=== PATIENT | female | born 1990 | race Caucasian/White ===

== ENCOUNTER 2019-04-01 23:38 | Emergency (ER) | payer MEDICAID, SELFPAY ==
[2019-04-01 23:39] VITALS: BP 126/96; PULSE 112; RESP 18; TEMP 36.8; O2SAT 97; BMI 28.5
--- NOTE | 2019-04-01 23:51 | USR_ITS ---
PROCEDURE INFORMATION: Exam: US First Trimester, Transabdominal and US , Transvaginal Exam date and time: 04/01/2019 12:17 AM Age: 28 years old Clinical indication: complicated by abdominal or pelvic pain; Right lower quadrant; First trimester; Gestational age or lmp: Per patient 10w 1d per US gs measurement 6w 0d; Additional info: Pelvic pain, 10w preg TECHNIQUE: Imaging protocol: Real-time transabdominal obstetrical ultrasound of the maternal pelvis and a first trimester , less than 14 weeks 0 days, with image documentation. Transvaginal imaging was used for better evaluation of the fetus and adnexa. COMPARISON: No relevant prior studies available. FINDINGS: There is a 16 x 4 x 10 mm somewhat irregular shaped fluid collection within the uterus that might represent a very early gestational sac. No definite yolk sac visible to confirm that this is a true gestational sac. If this is a gestational sac, size would suggest gestational age of approximately 5 weeks. Small amount of cul-de-sac fluid. Small simple appearing cyst in the left ovary, measuring 31 x 25 x 28 mm. Small simple appearing cyst in the right ovary, measuring 32 x 29 x 22 mm. Maternal ovaries/adnexa otherwise appear essentially unremarkable. Blood flow detected in each ovary. The sonographic appearance alone is nonspecific. This may represent an early viable intrauterine , approximately 5 weeks gestation. If there is any further question of viability, follow up will be needed. An occult ectopic with a pseudo sac in the uterus is not yet completely excluded. Appropriate clinical follow up is needed. The urinary bladder was not completely evaluated/imaged at this time. Endovaginal scanning provided better visualization/evaluation of the possible gestational sac and contents, as discussed above. US/US OB limited [id number] IMPRESSION: 1. Possible very early gestational sac within the uterus. 2. See above discussion and recommendations. 3. Simple appearing cyst in each ovary, details above. 4. Small amount of cul-de-sac fluid. 5. Other details discussed above.
[2019-04-01] MEDS: sodium chloride 0.9% 1,000 ML 999 ML IV (23:53)
--- NOTE | 2019-04-02 | ED_ITS ---
Entered by Shoshana Zarate, acting as scribe for Chandrakant Dawn DO HPI - Abdominal Pain General: Chief Complaint: Abdominal Pain Stated Complaint: Abdominal Pain Time Seen by Provider: 04/01/19 23:49 Source: patient Mode of arrival: wheelchair Limitations: no limitations History of Present Illness: HPI narrative: 28 yo f came to the er with abd pain. Pt states that she has been cramping on and off but tonight on a sudden having some sharp pain. Pt states that she has had some nausea and some mild spotting. Onset was tonight. Pt states that she is 10 weeks . Pain is located in the lower middle part of her abd. MD elicited complaint: abdominal pain Pertinent past history: none Onset (ago): day(s) (today) Pain Consistency: constant Severity: moderate Quality: cramping and stabbing Radiation: none Exacerbating factors: nothing Relieving factors: nothing Associated Symptoms: Reports nausea; Denies chills, dysuria, fever(s) and hematuria Related Data: Patient : Yes (10 weeks) Review of Systems Const: Denies: fever or chills ENMT: Denies: painful swallowing, swelling of lips/tongue, bleeding gums, dental pain, Change in hearing, nose bleeds, post nasal drip or facial/sinus pain Card: Denies: chest pain, palpitations, irregular heart rhythm, edema, swelling of feet/ankles, shortness of breath on exertion or shortness of breath when lying down Resp: Denies: shortness of breath, productive cough, non-productive cough or wheezing GI: Reports: nausea : Denies: painful urination, urinary frequency, urinary urgency or blood in urine Musc: Denies: neck pain, back pain, redness or joint warmth Skin/Breast: Denies: rash, itching or redness Neuro: Denies: headache, dizziness, vertigo, confusion or seizure-like activity Psych: Denies: anxiety, visual hallucinations or auditory hallucinations PFSH ED PFSH: Statuses (acute, chronic, etc) shown below reflect problem list status as previously entered and may not be historically accurate Medical History (Updated 04/02/19 @ 02:44 by Chandrakant Dawn DO) Chronic migraine without aura, with intractable migraine, so stated, with status migrainosus (Acute) History of supraventricular tachycardia (Acute) Diagnosed in 2003 in her first . She states she underwent an cardiac ablative procedure in 2004 in [facility] and since then she has had no problems with tachycardia. Patient denies medical problems (Acute) Seizure disorder (Acute) Denies history of: Denies diabetes, asthma, hypertension, DVT/PE Wrist fracture (Acute) left at age 6; right at age 8 Surgical History (Updated 03/31/19 @ 15:11 by Zulema Solo RN) History of radiofrequency ablation (RFA) procedure for cardiac arrhythmia (Acute ~2005) To treat SVT Family History (Updated 03/31/19 @ 15:13 by Zulema Solo RN) Father Hypertension Diabetes Grandmother Hypertension Paternal Diabetes Paternal Left cleft palate paternal Breast cancer paternal Mother Heart disease Family/Other Left cleft palate cousins Down's syndrome Cousin Patient denies medical problems Denies family history of: Cervical, uterine, ovarian, colon cancer, DVT/PE Social History (Updated 03/31/19 @ 15:14 by Zulema Solo RN) Smoking and tobacco status: former smoker Alcohol intake: former Other details last substance use: Reports history of methamphetamine, cocaine and marijuana use Female Reproductive History: : 2 Physical Exam Const: COMMON NORMALS: oriented x3, healthy appearing and alert GENERAL APPEARANCE: in distress (Mild) Eye: COMMON NORMALS: EOMs intact bilaterally and conjunctivae normal CONJUNCTIVA: Yes conjunctivae normal Chest: COMMONS NORMALS: inspection of chest normal Resp: COMMON NORMALS: normal respiratory effort, no retractions, no use of accessory muscles and clear to auscultation bilaterally AUSCULTATION: clear to auscultation bilaterally Cardio: COMMON NORMALS: regular rate and regular rhythm RATE: regular rate RHYTHM: regular rhythm HEART SOUNDS: no murmurs GI: COMMON NORMALS: soft to palpation INSPECTION: Yes normal to inspection PALPATION: Yes soft and Yes tender Details: LLQ, RLQ and other (Suprapubic) PERCUSSION: normal to percussion : COMMON NORMALS: Yes no CVA tenderness BLADDER/KIDNEY EXAM: Yes no CVA tenderness Back/Pelvis: COMMON NORMALS: no CVA tenderness Neuro: COMMON NORMALS: oriented x3 SENSORIUM/ORIENTATION: Yes alert Course ED course: 28-year-old G2, P1. Her first was 15 years prior. She believes she was 10 weeks , her serum quant shows about 5 weeks. She has a gestational sac in the uterus by ultrasound showing about 5 weeks as well. No pole was present yet. Too early to rule out an ectopic. She is only spotted some. This could be a blighted ovum with threatened versus an early ectopic that is much less likely. Her laboratory is benign otherwise. Her cervix was closed, and she is experiencing no discharge. Pelvic was deferred because of this. Vital Signs: Vital signs: Vital Signs Temperature 98.3 F 04/01/19 23:39 Pulse Rate 92 04/02/19 03:04 Respiratory Rate 17 04/02/19 00:47 Blood Pressure 126/96 04/01/19 23:39 Pulse Oximetry 97 04/02/19 03:04 MDM - Abdominal Pain Lab Data: Labs: Lab Results 04/01/19 04/01/19 04/01/19 Range/Units 23:58 23:58 23:58 WBC 6.9 (4.0-10.0) 10^3/ uL RBC 3.96 L (4.1-5.3) 10^6/u L Hgb 12.0 (11.5-15.3) g/dL Hct 34.2 L (37.0-47.0) % MCV 86.4 (81-99) fL MCH 30.3 (28.0-34.0) pg MCHC 35.1 (30.0-36.0) g/dL RDW 12.3 (12.1-15.1) % Plt Count 184 (130-400) 10^3/c mm MPV 10.2 (7.4-10.4) fL Neut % (Auto) 69.2 % Lymph % (Auto) 18.1 % Dent % (Auto) 11.1 % Eos % (Auto) 0.9 % Baso % (Auto) 0.3 % Neut # (Auto) 4.8 (1.8-7.7) 10^3/u L Lymph # (Auto) 1.2 (0.8-4.8) 10^3/u L Dent # (Auto) 0.8 (0.2-0.9) 10^3/u L Eos # (Auto) 0.1 (0.0-0.8) 10^3/u L Baso # (Auto) 0.0 (0.0-0.1) 10^3/u L Nucleated RBC % (a uto) 0 % Nucleated RBCs # 0.0 /100WBC Sodium 137 (136-145) mmol/L Potassium 3.7 (3.5-5.1) mmol/L Chloride 103 (98-107) mmol/L Carbon Dioxide 22 (22-29) mmol/L Anion Gap 15.7 (5-19) BUN 9 (6-20) mg/dL Creatinine 0.6 (0.5-0.9) mg/dL GFR Calculation 118.2 (90-130) mL/min Glucose 123 H (74-109) mg/dL Calcium 9.3 (8.5-10.5) mg/dL Total Bilirubin 0.3 (0.15-1.2) mg/dL AST 13 (0-32) U/L ALT 14 (0-33) U/L Alkaline Phosphata se 61 (35-105) IU/L Total Protein 6.7 (6.6-8.7) g/dL Albumin 4.7 (3.5-5.2) g/dL Globulin 2.0 (1.3-4.6) g/dL Lipase 31 (13-60) U/L Ser , Nikole i-Qnt 269.30 mIU/mL Urine Color (Yellow) Urine Appearance (CLEAR) Urine pH (5-7) Ur Specific Gravit y (1.005-1.030) Urine Protein (Negative) Urine Glucose (UA) (Normal) Urine Ketones (Negative) Urine Occult Blood (Negative) Urine Nitrate (Negative) Urine Bilirubin (NEGATIVE) Urine Urobilinogen (Negative) mg/dL Ur Leukocyte Mary ase (Negative) Blood Type O Positive 04/02/19 Range/Units 00:30 WBC (4.0-10.0) 10^3/ uL RBC (4.1-5.3) 10^6/u L Hgb (11.5-15.3) g/dL Hct (37.0-47.0) % MCV (81-99) fL MCH (28.0-34.0) pg MCHC (30.0-36.0) g/dL RDW (12.1-15.1) % Plt Count (130-400) 10^3/c mm MPV (7.4-10.4) fL Neut % (Auto) % Lymph % (Auto) % Dent % (Auto) % Eos % (Auto) % Baso % (Auto) % Neut # (Auto) (1.8-7.7) 10^3/u L Lymph # (Auto) (0.8-4.8) 10^3/u L Dent # (Auto) (0.2-0.9) 10^3/u L Eos # (Auto) (0.0-0.8) 10^3/u L Baso # (Auto) (0.0-0.1) 10^3/u L Nucleated RBC % (a uto) % Nucleated RBCs # /100WBC Sodium (136-145) mmol/L Potassium (3.5-5.1) mmol/L Chloride (98-107) mmol/L Carbon Dioxide (22-29) mmol/L Anion Gap (5-19) BUN (6-20) mg/dL Creatinine (0.5-0.9) mg/dL GFR Calculation (90-130) mL/min Glucose (74-109) mg/dL Calcium (8.5-10.5) mg/dL Total Bilirubin (0.15-1.2) mg/dL AST (0-32) U/L ALT (0-33) U/L Alkaline Phosphata se (35-105) IU/L Total Protein (6.6-8.7) g/dL Albumin (3.5-5.2) g/dL Globulin (1.3-4.6) g/dL Lipase (13-60) U/L Ser , Nikole i-Qnt mIU/mL Urine Color Yellow (Yellow) Urine Appearance Clear (CLEAR) Urine pH 7 (5-7) Ur Specific Gravit y 1.010 (1.005-1.030) Urine Protein Neg (Negative) Urine Glucose (UA) Norm (Normal) Urine Ketones Negative (Negative) Urine Occult Blood Neg (Negative) Urine Nitrate Negative (Negative) Urine Bilirubin Neg (NEGATIVE) Urine Urobilinogen Norm (Negative) mg/dL Ur Leukocyte Mary ase Negative (Negative) Blood Type Imaging Data ^: US OB: Radiologist's impression: [address] [address] Ultrasound Report Signed Patient: Emmy Francisco #: [id number] : 1990Acct#:[id number] Age/Sex: 28 FADM Date: 04/01/19 Loc: ERRoom/Bed: Attending Dr: Ordering Provider/Ordering MD: Chandrakant Dawn DO Date of Service: 04/01/19 Procedure(s): US OB limited 62290 Accession Number(s): [id number] Report Number: [id number] PROCEDURE INFORMATION: Exam: US First Trimester, Transabdominal and US , Transvaginal Exam date and time: 04/01/2019 12:17 AM Age: 28 years old Clinical indication: complicated by abdominal or pelvic pain; Right lower quadrant; First trimester; Gestational age or lmp: Per patient 10w 1d per US gs measurement 6w 0d; Additional info: Pelvic pain, 10w preg TECHNIQUE: Imaging protocol: Real-time transabdominal obstetrical ultrasound of the maternal pelvis and a first trimester , less than 14 weeks 0 days, with image documentation. Transvaginal imaging was used for better evaluation of the fetus and adnexa. COMPARISON: No relevant prior studies available. FINDINGS: There is a 16 x 4 x 10 mm somewhat irregular shaped fluid collection within the uterus that might represent a very early gestational sac. No definite yolk sac visible to confirm that this is a true gestational sac. If this is a gestational sac, size would suggest gestational age of approximately 5 weeks. Small amount of cul-de-sac fluid. Small simple appearing cyst in the left ovary, measuring 31 x 25 x 28 mm. Small simple appearing cyst in the right ovary, measuring 32 x 29 x 22 mm. Maternal ovaries/adnexa otherwise appear essentially unremarkable. Blood flow detected in each ovary. The sonographic appearance alone is nonspecific. This may represent an early viable intrauterine , approximately 5 weeks gestation. If there is any further question of viability, follow up will be needed. An occult ectopic with a pseudo sac in the uterus is not yet completely excluded. Appropriate clinical follow up is needed. The urinary bladder was not completely evaluated/imaged at this time. Endovaginal scanning provided better visualization/evaluation of the possible gestational sac and contents, as discussed above. US/US OB limited 62909 IMPRESSION: 1. Possible very early gestational sac within the uterus. 2. See above discussion and recommendations. 3. Simple appearing cyst in each ovary, details above. 4. Small amount of cul-de-sac fluid. 5. Other details discussed above. Dictated By:Zack Aragon MD Signed By:Zack Aragon MDSigned Date/Time:04/02/19207 DD/ 5 Discharge Plan Discharge Patient Disposition: Home, Self-Care Clinical Impression: Threatened Condition: Stable Prescriptions: [place] 7.5-325 mg tablet 1 tab PO Q6H Qty: 10 RF: 0 Reglan 10 mg tablet 10 mg PO Q6H PRN (Reason: nausea and vomiting) Qty: 10 RF: 0 Discharge Orders: Discharge Order (Routine); Ordered 04/02/19 Ordered By: Chandrakant Dawn Referrals: Jaqueline Celis FNP [Primary Care Provider] - Pamella Hernández MD [Physician] - 4-7 days Discharge Diet: Advance as tolerated Discharge Activity: Limit activity as instructed Patient Instructions: Threatened Miscarriage (ED) Activity Restrictions/Additional Instructions: Return for worsening pain despite treatment, fever greater than 100, vomiting liquids or medications, other concerning symptoms. Return also for brisk vaginal bleeding, soaking more than 1 pad per hour for more than 2 to 3 hours. Try to limit lifting to 15 pounds or less. Pelvic rest (no intercourse) until cleared by your doctor. You need to have your blood test checked again in 2-4 days. Call your doctor's office wednesday to arrange this. Discharge Date/Time: 04/02/19 03:05 Coding Level of Care Code ED Clinical Informatics Specialist for Chg Fwd The documentation recorded by the Elliot bergman Stephanie Lyn, accurately reflects the service I personally performed and the decisions made by , Chandrakant Dawn, Apr 01, 2019 23:38
[2019-04-02 00:04] VITALS: RESP 17
[2019-04-02] MEDS: ondansetron 2 mg/ML SDV 2 mL 4 MG IVP (00:04)
[2019-04-02] MEDS: morphine 4 mg/mL SDV 1 mL IVP ×2 (00:04→00:44)
[2019-04-02 00:05] LABS: Basophils % 0.3 %; Eosinophils # 0.1 10^3/uL (0.0-0.8); Eosinophils % 0.9 %; Hematocrit 34.2 % (37.0-47.0); Lymphocytes # 1.2 10^3/uL (0.8-4.8); Lymphocytes % 18.1 %; Mean Corpuscular HGB Conc 35.1 g/dL (30.0-36.0); Mean Corpuscular Hemoglobin 30.3 pg (28.0-34.0); Mean Corpuscular Volume 86.4 fL (81-99); Mean Platelet Volume 10.2 fL (7.4-10.4); Monocytes # 0.8 10^3/uL (0.2-0.9); Monocytes % 11.1 %; Neutrophils # 4.8 10^3/uL (1.8-7.7); Neutrophils % 69.2 %; Nucleated Red Blood Cells % 0 %; Platelet Count 184 10^3/cmm (130-400); Red Blood Count 3.96 10^6/uL (4.1-5.3); Red Cell Distribution Width 12.3 % (12.1-15.1); White Blood Count 6.9 10^3/uL (4.0-10.0)
[2019-04-02 00:36] LABS: Alanine Aminotransferase 14 U/L (0-33); Albumin Level 4.7 g/dL (3.5-5.2); Alkaline Phosphatase 61 IU/L (35-105); Anion Gap 15.7 (5-19); Aspartate Amino Transferase 13 U/L (0-32); Blood Urea Nitrogen 9 mg/dL (6-20); Calcium 9.3 mg/dL (8.5-10.5); Carbon Dioxide 22 mmol/L (22-29); Chloride 103 mmol/L (98-107); Glomerular Filtration Rate 118.2 mL/min (90-130); Glucose 123 mg/dL (74-109); Lipase 31 U/L (13-60); Potassium 3.7 mmol/L (3.5-5.1); Sodium 137 mmol/L (136-145); Total Bilirubin 0.3 mg/dL (0.15-1.2); Total Protein 6.7 g/dL (6.6-8.7)
[2019-04-02 00:44] VITALS: RESP 17
[2019-04-02 00:47] VITALS: RESP 17
[2019-04-02 00:50] LABS: Add Urine Microscopic? NO
[2019-04-02 01:25] LABS: Bilirubin Urine Neg (NEGATIVE); Blood Urine Neg (Negative); Glucose Urine UA Norm (Normal); Ketones Urine Negative (Negative); Leukocyte Esterase Urine Negative (Negative); Nitrate Urine Negative (Negative); Protein Urine Neg (Negative); Urine Appearance Clear (CLEAR); Urine Color Yellow (Yellow); Urobilinogen Urine Norm (Negative); pH Urine 7 (5-7)
[2019-04-02 03:04] VITALS: PULSE 92; O2SAT 97
--- NOTE | 2019-04-03 16:11 | DCPLANNER ---
manager hospitality had message to schedule a follow up appointment for patient with [facility]. manager hospitality called the [facility] clinic, spoke with Tameka, gave clinic patients information. manager hospitality was told that patients information would be printed and reviewed. Clinic will call rn field case manager and patient with appointment information.
--- NOTE | 2019-04-05 14:25 | DCPLANNER ---
Patient had a follow up appointment scheduled for 04.04.19 with [facility], patient did attend the appointment.
== END 2019-04-02 03:05 | disposition home or self-care (01) ==
PROVIDERS: Emergency Provider Emergency Medicine; Family Provider Nurse Practitioner; PCP Nurse Practitioner
DX: O20.0 Threatened abortion (principal); Z3A.10 10 weeks gestation of pregnancy; Z87.891 Personal history of nicotine dependence
CPT/HCPCS: 36415; 76815; 80053; 81003; 83690; 84702; 85025; 86900; 96360; 96374; 99282; J2270; J2405; J7030

== ENCOUNTER 2019-04-04 16:29 | Emergency (ER) | payer MEDICAID, SELFPAY ==
[2019-04-04 16:56] VITALS: BP 111/77; PULSE 96; RESP 14; TEMP 36.8; O2SAT 99; BMI 28.5
[2019-04-04 18:35] VITALS: BP 103/63; PULSE 91; RESP 20; O2SAT 99
--- NOTE | 2019-04-04 18:39 | ED_ITS ---
Entered by Nena Fischer, acting as scribe for Latrice Tejada Enrique Apr 04, 2019 16:29 HPI - Abdominal Pain General: Chief Complaint: Abdominal Pain Stated Complaint: poss miscarriage Time Seen by Provider: 04/04/19 18:35 Source: patient Mode of arrival: ambulatory Limitations: no limitations History of Present Illness: HPI narrative: 28 yo Female presents to ED with complaint of abdominal pain and nausea. Pt states that she is 6 weeks . Pt states that she had a positive test, positive test in ED on Wednesday04/02/19, and positive ultrasound. Pt states that today she started bleeding with large blood clots. Pt states that this is her second . 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 MD elicited complaint: abdominal pain Pertinent past history: none Onset (ago): hour(s) Pain Consistency: intermittent Quality: cramping Radiation: none Migration to: no migration Exacerbating factors: nothing Relieving factors: nothing Associated Symptoms: Reports GI cramping and nausea; Denies chills, coffee ground emesis, constipation, diarrhea, dysuria, fever(s), hematochezia, hematuria, hematemesis, melena, syncope and vomiting Related Data: Date of Last Menstrual Period: 01/21/19 Review of Systems General: Reports: other (negative unless marked) Const: Denies: fever, chills, body aches, fatigue, malaise or diaphoresis Eyes: Denies: change in vision or blurry vision ENMT: Denies: throat pain, painful swallowing, hoarseness, ear pain, ear discharge, Change in hearing or nasal discharge Card: Denies: chest pain, palpitations, irregular heart rhythm, syncope, pre- syncope, shortness of breath on exertion or shortness of breath when lying down Resp: Denies: shortness of breath, productive cough, non-productive cough, wheezing, coughing up blood or chest congestion GI: Reports: abdominal pain, nausea and cramping; Denies: vomiting, vomiting blood, coffee grounds in vomit, diarrhea, constipation, blood in stool or black tarry stool : Reports: vaginal bleeding; Denies: flank pain, painful urination, urinary frequency, urinary urgency, decreased urine ouput, urinary incontinence or blood in urine Musc: Denies: neck pain, back pain, extremity pain, extremity swelling, joint pain, joint swelling, joint warmth or joint stiffness Skin/Breast: Denies: rash, skin tenderness or yellow skin Neuro: Denies: headache, numbness in extremities, weakness in extremities, changes in sensation, lack of coordination, difficulty walking, dizziness, vertigo or confusion Endo: Denies: excessive thirst, tired all the time, cold intolerance, excessive sweating, flushing or hot flashes Zion/Lymph: Denies: easy bruising, easy bleeding, petechiae or enlarged lymph nodes All/Imm: Denies: hives, throat swelling, tongue swelling, facial swelling or acute wheezing PFSH ED PFSH: Statuses (acute, chronic, etc) shown below reflect problem list status as previously entered and may not be historically accurate Medical History Chronic migraine without aura, with intractable migraine, so stated, with status migrainosus (Acute) History of supraventricular tachycardia (Acute) Diagnosed in 2003 in her first . She states she underwent an cardiac ablative procedure in 2004 in [facility] and since then she has had no problems with tachycardia. Patient denies medical problems (Acute) Seizure disorder (Acute) Denies history of: Denies diabetes, asthma, hypertension, DVT/PE Wrist fracture (Acute) left at age 6; right at age 8 Surgical History History of radiofrequency ablation (RFA) procedure for cardiac arrhythmia (Acute ~2004) To treat SVT Family History Father Hypertension Diabetes Grandmother Hypertension Paternal Diabetes Paternal Left cleft palate paternal Breast cancer paternal Mother Heart disease Family/Other Left cleft palate cousins Down's syndrome Cousin Patient denies medical problems Denies family history of: Cervical, uterine, ovarian, colon cancer, DVT/PE Social History Smoking and tobacco status: former smoker Alcohol intake: former Other details last substance use: Reports history of methamphetamine, cocaine and marijuana use Female Reproductive History: Date of last menstrual period: 01/21/19 : 2 Physical Exam Const: COMMON NORMALS: no apparent distress, oriented x3, no limitations, healthy appearing and well nourished EXAM LIMITATIONS: no altered mental status GENERAL APPEARANCE: cooperative, well kempt and well developed ORIENTATION/CONSCIOUSNESS: Yes awake HENMT: COMMON NORMALS: normocephalic, head/scalp atraumatic, hearing grossly normal bilaterally, external ears normal, EAC's normal, external nose normal and moist oral mucous membranes HEAD & SCALP: normal to inspection, normocephalic and atraumatic FACE & SINUS: normal facial exam and face symmetric NOSE: external nose normal and nares normal EXTERNAL EAR: Yes external ears normal EXTERNAL AUDITORY CANAL: EAC's normal MOUTH: oral and palatal mucosa normal and tongue normal Eye: COMMON NORMALS: PERRL, EOMs intact bilaterally, conjunctivae normal and no scleral icterus GENERAL EYE: normal appearance of both eyes and normal light reflex CONJUNCTIVA: Yes conjunctivae normal SCLERA: sclerae normal CORNEA: Yes corneas normal PUPIL: Yes PERRL DIRECT OPHTHALMOSCOPY: Yes normal light reflex Neck/C-Spine: COMMON NORMALS: full ROM, no lymphadenopathy, supple, no meningeal signs and no JVD GENERAL: Yes normal visual inspection and Yes trachea midline CERVICAL SPINE: Yes cervical ROM normal Chest: COMMONS NORMALS: inspection of chest normal and palpation of chest normal Resp: COMMON NORMALS: normal respiratory effort, no retractions, no use of accessory muscles and clear to auscultation bilaterally EFFORT & INSPECTION: Yes able to speak in complete sentences AUSCULTATION: clear to auscultation bilaterally Cardio: COMMON NORMALS: no JVD, regular rate, regular rhythm, S1 normal heart sound, S2 normal heart sound, no gallops, no clicks, no murmurs and no rub JUGULAR VENOUS DISTENTION: no JVD RATE: regular rate RHYTHM: regular rhythm HEART SOUNDS: S1 normal and S2 normal GI: COMMON NORMALS: soft to palpation, non-tender, no hepatosplenomegaly and no masses INSPECTION: Yes normal to inspection PALPATION: Yes soft and Yes no hepatosplenomegaly : COMMON NORMALS: Yes no CVA tenderness BLADDER/KIDNEY EXAM: Yes no CVA tenderness Back/Pelvis: COMMON NORMALS: no CVA tenderness, thoracic and lumbar spine normal to inspection, no thoracic nor lumbar tenderness and thoraco-lumbar ROM normal Extremity: COMMON NORMALS: normal to inspection, full ROM, normal capillary refill, no joint enlargement, no clubbing, cyanosis or edema and no calf tenderness Neuro: COMMON NORMALS: oriented x3, CN's II-XII intact bilaterally, moves all extremities, no focal motor deficits and no sensory deficits noted MENINGEAL SIGNS: Yes no meningeal signs Psych: COMMON NORMALS: mental status grossly normal, thought process normal, cooperative, affect normal, speech normal and activity/motor behavior normal APPEARANCE: Yes well kempt SPEECH: Yes normal speech THOUGHT PROCESS: normal thought process Skin: COMMON NORMALS: no rashes or lesions noted, skin turgor normal, no jaundice, no petechiae and no mottling GENERAL SKIN EXAM: no rashes or lesions noted and turgor normal Course Vital Signs: Vital signs: Vital Signs Temperature 98.2 F 04/04/19 16:56 Pulse Rate 84 04/04/19 21:55 Respiratory Rate 18 04/04/19 21:55 Blood Pressure 110/67 04/04/19 21:55 Pulse Oximetry 100 04/04/19 21:55 MDM - Abdominal Pain MDM Narrative: Medical decision making narrative: Arrival -Emmy is a 28-year-old female who comes in complaining of vaginal bleeding. She describes a previously intrauterine seen on ultrasound measuring about 6 weeks. She had cramping since that time but has now beginning to have bleeding and worsening cramping. Vital signs are stable. No signs of syncope or near syncope. Differential is extensive including threatened miscarriage, incomplete miscarriage, ectopic , normal , among many others. Will ensue work-up with ultrasound, lab work, blood type checking to evaluate for the previously mentioned diagnosis. Discharge -patient's ultrasound reveals what is probably a demise and incomplete miscarriage. There is no sign of ectopic or sign of ovarian torsion or ovarian problem. The patient's history, exam and findings at this time are most consistent with incomplete miscarriage. With what was believed to be a gestational sac present before now passing a ectopic is less likely but not completely ruled out. The patient does not have any free fluid in her pelvis or sign of ectopic on ultrasound. I reviewed the case in full with Dr. Flower who agrees to see the patient on or Wednesday to recheck her quantitative hCG as he knows this will need to be followed out to 0. The patient understands the importance of this and does agree to follow-up as directed or return here sooner if needed. She understands ectopic is still a possibility. She agrees to return here if her symptoms worsen or change in any way. The patient does not want a catheterized specimen of her urine but I believe is this just contamination but I will place her on Keflex just to be certain I will treat her bacterial vaginosis with Cleocin. Lab Data: Attestation: I reviewed the patient's lab results. Labs: Lab Results 04/04/19 04/04/19 04/04/19 Range/Units 17:21 17:21 17:21 WBC 7.6 (4.0-10.0) 10^3/ uL RBC 4.54 (4.1-5.3) 10^6/u L Hgb 13.8 (11.5-15.3) g/dL Hct 39.8 (37.0-47.0) % MCV 87.7 (81-99) fL MCH 30.4 (28.0-34.0) pg MCHC 34.7 (30.0-36.0) g/dL RDW 12.3 (12.1-15.1) % Plt Count 196 (130-400) 10^3/c mm MPV 10.8 H (7.4-10.4) fL Neut % (Auto) 68.4 % Lymph % (Auto) 20.8 % Bosque % (Auto) 8.9 % Eos % (Auto) 1.1 % Baso % (Auto) 0.4 % Neut # (Auto) 5.2 (1.8-7.7) 10^3/u L Lymph # (Auto) 1.6 (0.8-4.8) 10^3/u L Bosque # (Auto) 0.7 (0.2-0.9) 10^3/u L Eos # (Auto) 0.1 (0.0-0.8) 10^3/u L Baso # (Auto) 0.0 (0.0-0.1) 10^3/u L Nucleated RBC % (a uto) 0 % Nucleated RBCs # 0.0 /100WBC Sodium 140 (136-145) mmol/L Potassium 3.6 (3.5-5.1) mmol/L Chloride 103 (98-107) mmol/L Carbon Dioxide 24 (22-29) mmol/L Anion Gap 16.6 (5-19) BUN 8 (6-20) mg/dL Creatinine 0.7 (0.5-0.9) mg/dL GFR Calculation 98.9 (90-130) mL/min Glucose 97 (74-109) mg/dL Calcium 9.6 (8.5-10.5) mg/dL Magnesium 2.0 (1.7-2.3) mg/dL Total Bilirubin 0.5 (0.15-1.2) mg/dL AST 13 (0-32) U/L ALT 11 (0-33) U/L Alkaline Phosphata se 74 (35-105) IU/L Total Protein 7.7 (6.6-8.7) g/dL Albumin 4.7 (3.5-5.2) g/dL Globulin 3.0 (1.3-4.6) g/dL Ser , Nikole i-Qnt 130.80 135.50 mIU/mL Urine Color (Yellow) Urine Appearance (CLEAR) Urine pH (5-7) Ur Specific Gravit y (1.005-1.030) Urine Protein (Negative) Urine Glucose (UA) (Normal) Urine Ketones (Negative) Urine Occult Blood (Negative) Urine Nitrate (Negative) Urine Bilirubin (NEGATIVE) Urine Urobilinogen (Negative) mg/dL Ur Leukocyte Mary ase (Negative) Urine RBC (0-2) /hpf Urine WBC (0-5) /hpf Ur Squamous Epith Cells (0-5) Urine Bacteria (NONE) Blood Type 04/04/19 04/04/19 Range/Units 17:27 19:40 WBC (4.0-10.0) 10^3/ uL RBC (4.1-5.3) 10^6/u L Hgb (11.5-15.3) g/dL Hct (37.0-47.0) % MCV (81-99) fL MCH (28.0-34.0) pg MCHC (30.0-36.0) g/dL RDW (12.1-15.1) % Plt Count (130-400) 10^3/c mm MPV (7.4-10.4) fL Neut % (Auto) % Lymph % (Auto) % Bosque % (Auto) % Eos % (Auto) % Baso % (Auto) % Neut # (Auto) (1.8-7.7) 10^3/u L Lymph # (Auto) (0.8-4.8) 10^3/u L Bosque # (Auto) (0.2-0.9) 10^3/u L Eos # (Auto) (0.0-0.8) 10^3/u L Baso # (Auto) (0.0-0.1) 10^3/u L Nucleated RBC % (a uto) % Nucleated RBCs # /100WBC Sodium (136-145) mmol/L Potassium (3.5-5.1) mmol/L Chloride (98-107) mmol/L Carbon Dioxide (22-29) mmol/L Anion Gap (5-19) BUN (6-20) mg/dL Creatinine (0.5-0.9) mg/dL GFR Calculation (90-130) mL/min Glucose (74-109) mg/dL Calcium (8.5-10.5) mg/dL Magnesium (1.7-2.3) mg/dL Total Bilirubin (0.15-1.2) mg/dL AST (0-32) U/L ALT (0-33) U/L Alkaline Phosphata se (35-105) IU/L Total Protein (6.6-8.7) g/dL Albumin (3.5-5.2) g/dL Globulin (1.3-4.6) g/dL Ser , Nikole i-Qnt mIU/mL Urine Color Red (Yellow) Urine Appearance Turbid (CLEAR) Urine pH 5 (5-7) Ur Specific Gravit y 1.020 (1.005-1.030) Urine Protein 2+ H (Negative) Urine Glucose (UA) Norm (Normal) Urine Ketones Negative (Negative) Urine Occult Blood 3+ H (Negative) Urine Nitrate Negative (Negative) Urine Bilirubin Neg (NEGATIVE) Urine Urobilinogen 1 H (Negative) mg/dL Ur Leukocyte Mary ase 1+ H (Negative) Urine RBC Too numerous to c nt H (0-2) /hpf Urine WBC 25-40 H (0-5) /hpf Ur Squamous Epith Cells 5-10 H (0-5) Urine Bacteria 4+ H (NONE) Blood Type O Positive Imaging Data ^: US Transvaginal: Radiologist's impression: [address] [address] Ultrasound Report Signed Patient: Emmy Francisco #: [id number] : 1990Acct#:[id number] Age/Sex: 28 / FADM Date: 04/04/19 Loc: ERRoom/Bed: Attending Dr: Ordering Provider/Ordering MD: Latrice Tejada DO Date of Service: 04/04/19 Procedure(s): US pelvic with transvaginal Accession Number(s): [id number] Report Number: [id number] PROCEDURE INFORMATION: Exam: US , Transvaginal and US Duplex Artery and Vein, Ovaries, Complete Exam date and time: 04/04/2019 6:54 PM Age: 28 years old Clinical indication: complicated by abdominal or pelvic pain; Lower; First trimester; Gestational age or lmp: Unknown; ; Patient HX: PT had prior ultrasound 04/01/19 TECHNIQUE: Imaging protocol: Real-time transvaginal obstetrical ultrasound of the maternal pelvis and a first trimester with image documentation. Transvaginal imaging was used for better evaluation of the fetus and adnexa. Real-time duplex ultrasound scan of the arterial and venous flow of the ovaries with B-mode, color Doppler flow and spectral waveform analysis, Complete Duplex. COMPARISON: US OB limited [id number] 04/02/2019 12:30 AM FINDINGS: Other findings: Doppler evaluation of both ovaries was performed and demonstrates appropriate waveforms and good color flow. No torsion. GESTATION: Gestation: No gestational sac is identified in the uterus. No adnexal mass or ectopic is identified. Noted fluid collection in the endometrial cavity. MATERNAL: Uterus: Uterus measures 11.4 x 4.7 by 4.2 cm. Uterus is retroverted. Endometrial stripe measures approximately 10 mm. Fluid in the endometrial cavity on the prior ultrasound is no longer identified. Right adnexa: Small simple right ovarian cyst is noted. The right ovary measures 1.9 x 2.9 x 1.9 cm. Left adnexa: The left ovary measures 3.2 x 3.2 x 2.5 cm. There is a simple left ovarian cyst measuring 2.9 x 2.2 x 3.2 cm. Intraperitoneal: There is a small amount of fluid in the cul-de-sac. US/US pelvic with transvaginal IMPRESSION: 1. Doppler evaluation of both ovaries was performed and demonstrates appropriate waveforms and good color flow. No torsion. 2. No gestational sac. Previous early sac or fluid in the endometrial cavity previously is no longer identified. No fluid collection in the endometrial cavity. Small simple appearing left ovarian cyst is noted. No ectopic . Dictated By:Milka Huang Signed By:Payam Huangigned Date/Time:04/04/192007 DD/ 05 Discharge Plan Discharge Patient Disposition: Home, Self-Care Clinical Impression: Incomplete , Bacterial vaginosis in UTI (urinary tract infection) Qualifiers: Urinary tract infection type: site unspecified Hematuria presence: with hematuria Qualified Code(s): N39.0 - Urinary tract infection, site not specified Condition: Stable Prescriptions: New Keflex 500 mg capsule 500 mg PO QID 10 Days Qty: 40 RF: 0 Cleocin HCl 300 mg capsule 300 mg PO BID 7 Days Qty: 14 RF: 0 No Action prenat.vits,yovani,ktp-ebzo-slycd Tablet 1 tab PO QDAY RF: 0 Barnet 7.5-325 mg tablet 1 tab PO Q6H Qty: 10 RF: 0 Reglan 10 mg tablet 10 mg PO Q6H PRN (Reason: nausea and vomiting) Qty: 10 RF: 0 Discharge Orders: Discharge Order (Routine); Ordered 04/04/19 Ordered By: Latrice Tejada Referrals: Jaqueline Celis FNP [Primary Care Provider] - Vidal Flower MD [Physician] - 1-3 days Discharge Diet: Usual diet Discharge Activity: Increase activity as tolerated Patient Instructions: Spontaneous Miscarriage (ED) Activity Restrictions/Additional Instructions: Please return to the ER immediately for any of the signs or symptoms listed on your discharge instruction sheets, worsening/changing of your symptoms, you are not getting better as quickly as expected, or for ANY other cause or concerns. Be certain to follow-up with Dr. Flower on or Wednesday as you will need to have a recheck of your hormone and to see the doctor to rule out ectopic . Return to the ER if you develop pain, you faint or nearly faint, if your bleeding becomes heavier, or for any other cause for concern. Discharge Date/Time: 04/04/19 21:55 Coding Level of Care Code ED Window Unit Air Conditioning Mechanic for Chg Fwd Exam Problem Focused The documentation recorded by the Aaliyah bergman Carmen, accurately reflects the service I personally performed and the decisions made by me, Latrice Tejada Apr 04, 2019 16:29
--- NOTE | 2019-04-04 18:49 | USR_ITS ---
PROCEDURE INFORMATION: Exam: US , Transvaginal and US Duplex Artery and Vein, Ovaries, Complete Exam date and time: 04/04/2019 6:54 PM Age: 28 years old Clinical indication: complicated by abdominal or pelvic pain; Lower; First trimester; Gestational age or lmp: Unknown; ; Patient HX: PT had prior ultrasound 04/01/19 TECHNIQUE: Imaging protocol: Real-time transvaginal obstetrical ultrasound of the maternal pelvis and a first trimester with image documentation. Transvaginal imaging was used for better evaluation of the fetus and adnexa. Real-time duplex ultrasound scan of the arterial and venous flow of the ovaries with B-mode, color Doppler flow and spectral waveform analysis, Complete Duplex. COMPARISON: US OB limited [id number] 04/02/2019 12:30 AM FINDINGS: Other findings: Doppler evaluation of both ovaries was performed and demonstrates appropriate waveforms and good color flow. No torsion. GESTATION: Gestation: No gestational sac is identified in the uterus. No adnexal mass or ectopic is identified. Noted fluid collection in the endometrial cavity. MATERNAL: Uterus: Uterus measures 11.4 x 4.7 by 4.2 cm. Uterus is retroverted. Endometrial stripe measures approximately 10 mm. Fluid in the endometrial cavity on the prior ultrasound is no longer identified. Right adnexa: Small simple right ovarian cyst is noted. The right ovary measures 1.9 x 2.9 x 1.9 cm. Left adnexa: The left ovary measures 3.2 x 3.2 x 2.5 cm. There is a simple left ovarian cyst measuring 2.9 x 2.2 x 3.2 cm. Intraperitoneal: There is a small amount of fluid in the cul-de-sac. US/US pelvic with transvaginal IMPRESSION: 1. Doppler evaluation of both ovaries was performed and demonstrates appropriate waveforms and good color flow. No torsion. 2. No gestational sac. Previous early sac or fluid in the endometrial cavity previously is no longer identified. No fluid collection in the endometrial cavity. Small simple appearing left ovarian cyst is noted. No ectopic .
[2019-04-04 18:58] LABS: Basophils % 0.4 %; Eosinophils # 0.1 10^3/uL (0.0-0.8); Eosinophils % 1.1 %; Hematocrit 39.8 % (37.0-47.0); Hemoglobin 13.8 g/dL (11.5-15.3); Lymphocytes # 1.6 10^3/uL (0.8-4.8); Lymphocytes % 20.8 %; Mean Corpuscular HGB Conc 34.7 g/dL (30.0-36.0); Mean Corpuscular Hemoglobin 30.4 pg (28.0-34.0); Mean Corpuscular Volume 87.7 fL (81-99); Mean Platelet Volume 10.8 fL (7.4-10.4); Monocytes # 0.7 10^3/uL (0.2-0.9); Monocytes % 8.9 %; Neutrophils # 5.2 10^3/uL (1.8-7.7); Neutrophils % 68.4 %; Nucleated Red Blood Cells % 0 %; Platelet Count 196 10^3/cmm (130-400); Red Blood Count 4.54 10^6/uL (4.1-5.3); Red Cell Distribution Width 12.3 % (12.1-15.1); White Blood Count 7.6 10^3/uL (4.0-10.0)
[2019-04-04 19:17] LABS: Alanine Aminotransferase 11 U/L (0-33); Albumin Level 4.7 g/dL (3.5-5.2); Alkaline Phosphatase 74 IU/L (35-105); Anion Gap 16.6 (5-19); Aspartate Amino Transferase 13 U/L (0-32); Blood Urea Nitrogen 8 mg/dL (6-20); Calcium 9.6 mg/dL (8.5-10.5); Carbon Dioxide 24 mmol/L (22-29); Chloride 103 mmol/L (98-107); Glomerular Filtration Rate 98.9 mL/min (90-130); Glucose 97 mg/dL (74-109); Potassium 3.6 mmol/L (3.5-5.1); Sodium 140 mmol/L (136-145); Total Bilirubin 0.5 mg/dL (0.15-1.2); Total Protein 7.7 g/dL (6.6-8.7)
[2019-04-04 19:40] VITALS: RESP 16
[2019-04-04] MEDS: metoclopramide 5 mg/mL SDV 2 mL 10 MG IV (19:40)
[2019-04-04] MEDS: morphine 4 mg/mL SDV 1 mL IVP (19:40)
[2019-04-04] MEDS: sodium chloride 0.9% 1,000 ML 100 ML IV (19:41)
[2019-04-04 21:07] LABS: Protein Urine 2+ (Negative); Urine Appearance Turbid (CLEAR); Urine Color Red (Yellow); pH Urine 5 (5-7)
[2019-04-04 21:08] LABS: Add Urine Culture? Yes; Bacteria Urine 4+; Bilirubin Urine Neg (NEGATIVE); Blood Urine 3+ (Negative); Glucose Urine UA Norm (Normal); Ketones Urine Negative (Negative); Leukocyte Esterase Urine 1+ (Negative); Nitrate Urine Negative (Negative); RBC Urine TOO NUMEROUS TO CNT /hpf (0-2); Urobilinogen Urine 1 mg/dL (Negative); WBC Urine 25-40 /hpf (0-5)
[2019-04-04] MEDS: HYDROcodone-acetaminophen 5-325 mg Tablet 1 TAB PO (21:54)
[2019-04-04 21:55] VITALS: BP 110/67; PULSE 84; RESP 18; O2SAT 100
== END 2019-04-04 21:55 | disposition home or self-care (01) ==
PROVIDERS: Emergency Medicine; Emergency Provider Emergency Medicine; Family Provider Nurse Practitioner; PCP Nurse Practitioner
DX: O03.4 Incomplete spontaneous abortion without complication (principal); O23.41 Unspecified infection of urinary tract in pregnancy, first trimester; Z3A.01 Less than 8 weeks gestation of pregnancy; O23.591 Infection of other part of genital tract in pregnancy, first trimester; Z87.891 Personal history of nicotine dependence
CPT/HCPCS: 36415; 76830; 76856; 80053; 81001; 83735; 84702; 85025; 86900; 87086; 87210; 87491; 87591; 96374; 99282; 99283; E0352; J2270; J2765; J7030

== ENCOUNTER → 2019-04-17 08:05 | Outpatient (BNVA) | payer MEDICAID, SELFPAY | PROVIDERS: Family Provider Nurse Practitioner; PCP Nurse Practitioner; Visit Provider Nurse Practitioner Women's Health | DX: O03.4 Incomplete spontaneous abortion without complication (principal); O23.599 Infection of other part of genital tract in pregnancy, unspecified trimester; B96.89 Other specified bacterial agents as the cause of diseases classified elsewhere; Z3A.01 Less than 8 weeks gestation of pregnancy | CPT/HCPCS: 84702 ==

== ENCOUNTER → 2019-04-27 08:48 | Outpatient (BNVA) | payer MEDICAID, SELFPAY | PROVIDERS: Family Provider Nurse Practitioner; PCP Nurse Practitioner; Visit Provider Nurse Practitioner Women's Health | DX: O03.4 Incomplete spontaneous abortion without complication (principal) | CPT/HCPCS: 84702 ==

== ENCOUNTER 2019-07-23 23:56 | Emergency (ER) | payer OTHER, SELFPAY ==
[2019-07-24 00:01] VITALS: BP 131/87; PULSE 88; RESP 16; TEMP 36.1; O2SAT 97; BMI 29.2
[2019-07-24] MEDS: fluorescein 1 mg Strip EYE-LEFT (00:19)
--- NOTE | 2019-07-24 00:19 | PC.NURSE ---
Poison control contacted concerning TBX instructions as follows: Rinse eye x 5 minutes check pH Check for injury utilizing fluorosine stain Othalmology consult for follow up if indicated.
[2019-07-24] MEDS: tetracaine 0.5% Op Soln 4 mL Btl 1 DROP EYE-LEFT (00:20)
[2019-07-24] MEDS: eye irrigation 30 mL Btl EYE-LEFT (00:20)
--- NOTE | 2019-07-24 00:45 | ED_ITS ---
HPI - Eye Problem General: Chief complaint: Eye Problems Stated complaint: left eye problems Time Seen by Provider: 07/24/19 00:07 Source: patient Mode of arrival: ambulatory Limitations: no limitations History of Present Illness: HPI Narrative: Patient is a 29-year-old female who presents to ED today with complaints of left eye pain. 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 She states she felt something might be in her eye and then touched her eye with her finger and thinks there was a small amount of chemical on her finger. She is complaining of burning and excessive tearing. No visual loss but does state things appear blurry. Reports she only uses a contact in her right eye. MD chief complaint: eye pain and eye redness Onset (ago): minute(s) Onset description: sudden Duration: constant Location: left eye Eye Symptoms: burning, redness and pain Place: work Mechanism: chemical exposure Severity: moderate Review of Systems Eyes: Reports: blurry vision, photophobia, eye discomfort, eye redness and increased production of tears; Denies: blind spots, floaters or seeing flashes PFSH ED PFSH: Medical History (Updated 07/24/19 @ 00:53 by DONNA Tolentino) Chronic migraine without aura, with intractable migraine, so stated, with status migrainosus History of supraventricular tachycardia Diagnosed in 2003 in her first . She states she underwent an cardiac ablative procedure in 2004 in [facility] and since then she has had no problems with tachycardia. Seizure disorder headache induced Surgical History H/O LEEP (~2009) [place]- 2 on pathology History of radiofrequency ablation (RFA) procedure for cardiac arrhythmia (~2004) To treat SVT Wrist fracture left at age 6; right at age 8 Family History Father Hypertension Diabetes Grandmother Hypertension Paternal Diabetes Paternal Left cleft palate paternal Breast cancer paternal Mother Heart disease Family/Other Left cleft palate cousins Patient denies medical problems Denies family history of: Cervical, uterine, ovarian, colon cancer, DVT/PE Social History Smoking and tobacco status: never smoked Alcohol intake: former Other details last substance use: Reports history of methamphetamine, cocaine and marijuana use History of recent travel: No Female Reproductive History: Date of last menstrual period: 07/07/19 Physical Exam Const: COMMON NORMALS: average body habitus, patient oriented x3, no limitations, healthy appearing, alert and well nourished Eye: COMMON NORMALS: Equal, round and reactive pupils present, EOMs intact bilaterally and no scleral icterus GENERAL EYE: normal light reflex VISUAL ACUITY: Yes acuity normal ALIGNMENT: Yes alignment normal PERIORBITAL: periorbital findings normal EYELID: eyelids normal CONJUNCTIVA: Yes conjunctival abnormal (diffuse injection) SCLERA: sclerae normal CORNEA: Yes corneas normal PUPIL: Yes Equal, round and reactive pupils present and Yes Pupil accommodation reflex normal DIRECT OPHTHALMOSCOPY: Yes normal light reflex OTHER: no fluorescein uptake noted; eye was copiously irrigated in addition to irrigated patient had already performed; pH testing was performed on both eyes and found to be 7.0 Neuro: COMMON NORMALS: patient oriented x3 SENSORIUM/ORIENTATION: Yes alert Course Vital Signs: Vital signs: Vital Signs Temperature 96.9 F L 07/24/19 00:01 Pulse Rate 68 07/24/19 01:08 Respiratory Rate 16 07/24/19 01:08 Blood Pressure 124/78 07/24/19 01:08 Pulse Oximetry 99 07/24/19 01:08 MDM - Eye Problem MDM Narrative: Medical decision making narrative: will have CM call patient tomorrow to set her up emergently with ophthalmology for reevaluation; strict return to ED precautions given. Discharge Plan Discharge Patient Disposition: Home, Self-Care Clinical Impression: Chemical burn of left eye Condition: Stable Prescriptions: New erythromycin 5 mg/gram (0.5 %) ointment 1 applic ophthalmic (eye) Q8H Qty: 3.5 RF: 0 tramadol 50 mg tablet 50 mg PO Q6H PRN (Reason: pain) Qty: 14 RF: 0 Discharge Orders: Discharge Order (Routine); Ordered 07/24/19 Ordered By: Nga Orr Referrals: Jaqueline Celis FNP [Primary Care Provider] - Patient Instructions: [facility]res, [facility] (ED) Activity Restrictions/Additional Instructions: Continue to irrigate the eye as much as possible when you get home in addition to the irrigation performed here. Case management should contact you tomorrow to set you up with ophthalmology. I recommend you see them in the next 1 to 2 days. Apply the antibiotic ointment as directed. You may use the pain medications as needed for eye discomfort. Return to the emergency department for uncontrollable pain, vision loss, any other concerns you may have. Discharge Date/Time: 07/24/19 01:11 Coding Level of Care Code ED Pediatrics Hospitalist for [place] Fwd Exam Expanded Problem Focused
[2019-07-24] MEDS: erythromycin Op Oint 1 gm 1 APPLIC EYE-LEFT (01:07)
[2019-07-24 01:08] VITALS: BP 124/78; PULSE 68; RESP 16; O2SAT 99
--- NOTE | 2019-07-25 11:07 | DCPLANNER ---
project manager retail had message to schedule a follow up appointment for patient with an eye doctor. project manager retail called patient to speak with patient about follow up appointment, was unable to speak with patient at this time, a voicemail was left for patient to return case liner phone call.
== END 2019-07-24 01:11 | disposition home or self-care (01) ==
PROVIDERS: Emergency Provider Physician Assistant; Family Provider Nurse Practitioner; PCP Nurse Practitioner
DX: T65.891A Toxic effect of other specified substances, accidental (unintentional), initial encounter (principal); T26.92XA Corrosion of left eye and adnexa, part unspecified, initial encounter
CPT/HCPCS: 12345; 99281; 99283

== ENCOUNTER 2019-09-13 07:31 | Emergency (ER) | payer MEDICAID, SELFPAY ==
--- NOTE | 2019-09-13 07:43 | W.ED.CHESTPA ---
HPI - Chest Pain General: Chief Complaint: Chest Pain Stated Complaint: CP Time Seen by Provider: 09/13/19 07:42 Source: patient Mode of arrival: ambulatory Limitations: no limitations History of Present Illness: HPI narrative: Patient is a 29-year-old female who presents to ED today with a complaint of chest pain that began earlier this morning while folding laundry. Patient tells me pain seemed to be located in the substernal/epigastric region and radiated into her back, left shoulder, and left ear. She states after symptoms began she began feeling very anxious. Upon arrival she states symptoms have subsided however continues to feel very anxious. Patient reports she has a history of 'non-SVT' SVT . She has no known other cardiac or pulmonary abnormalities. Patient not having any difficulty breathing, shortness of breath, cough, fevers. MD complaint: chest pain Timing of current episode: now resolved Pain location: substernal and epigastric Pain radiation: back, left shoulder and other (L ear) Relieving factors: nothing Exacerbating factors: nothing Associated symptoms: Deny abdominal pain, dyspnea, fever(s), nausea, palpitations, syncope or vomiting Review of Systems Const: Denies: fever(s), chills, body aches, fatigue or malaise Eyes: Denies: change in vision or blurry vision ENMT: Denies: throat pain, odynophagia, dental pain, ear or mastoid pain, nasal discharge, nasal congestion or epistaxis Card: Reports: chest pain; Denies: palpitations, irregular heart rhythm, edema, swelling of feet/ankles, lightheadedness, syncope, pre-syncope, dyspnea on exertion, orthopnea or leg pain with exertion Resp: Denies: dyspnea, productive cough, non-productive cough, pain on inspiration, hemoptysis or chest congestion GI: Denies: abdominal pain, nausea, vomiting, heartburn or diarrhea : Denies: dysuria Musc: Denies: neck pain, back pain or joint pain Skin/Breast: Denies: rash Neuro: Denies: headache(s) PFSH ED PFSH: Medical History (Updated 09/13/19 @ 08:58 by DONNA Tolentino) Chronic migraine without aura, with intractable migraine, so stated, with status migrainosus History of supraventricular tachycardia Diagnosed in 2003 in her first . She states she underwent an cardiac ablative procedure in 2004 in [facility] and since then she has had no problems with tachycardia. Seizure disorder headache induced Surgical History H/O LEEP (~2009) [place]- 2 on pathology History of radiofrequency ablation (RFA) procedure for cardiac arrhythmia (~2004) To treat SVT Wrist fracture left at age 6; right at age 8 Family History Father Hypertension Diabetes Grandmother Hypertension Paternal Diabetes Paternal Left cleft palate paternal Breast cancer paternal Mother Heart disease Family/Other Left cleft palate cousins Patient denies medical problems Denies family history of: Cervical, uterine, ovarian, colon cancer, DVT/PE Social History Smoking and tobacco status: never smoked Alcohol intake: former Other details last substance use: Reports history of methamphetamine, cocaine and marijuana use History of recent travel: No Female Reproductive History: Date of last menstrual period: 07/07/19 Physical Exam Const: COMMON NORMALS: no acute distress, average body habitus, patient oriented x3, no limitations, healthy appearing, alert and well nourished Neck/C-Spine: COMMON NORMALS: full ROM GENERAL: Yes normal visual inspection Chest: COMMONS NORMALS: normal inspection of the chest and normal palpation of entire chest wall Resp: COMMON NORMALS: normal respiratory effort and clear to auscultation bilaterally AUSCULTATION: clear to auscultation bilaterally Cardio: COMMON NORMALS: regular rate and regular rhythm RATE: regular rate RHYTHM: regular rhythm GI: COMMON NORMALS: Normal to inspection, nondistended, normoactive bowel sounds present, Soft to palpation, non-tender, No hepatosplenomegaly present and no masses PALPATION: Yes Soft to palpation and Yes No hepatosplenomegaly present Neuro: COMMON NORMALS: patient oriented x3 SENSORIUM/ORIENTATION: Yes alert Skin: COMMON NORMALS: no rashes or lesions noted GENERAL SKIN EXAM: no rashes or lesions noted Course Vital Signs: Vital signs: Vital Signs Temperature 98.1 F 09/13/19 07:47 Pulse Rate 91 09/13/19 07:47 Respiratory Rate 18 09/13/19 07:47 Pulse Oximetry 100 09/13/19 07:47 MDM - Chest Pain MDM Narrative: Medical decision making narrative: Again patient states her symptoms have subsided upon arrival to the ED apart from feeling anxious. Her vital signs have remained completely stable throughout her stay. She has been on the monitor during the entire time and I have not seen any episodes of SVT or other abnormal arrhythmias. Patient's EKG is normal. She has a negative troponin. CXR normal. At this time I will have case management work on getting patient set up with a primary care provider for further evaluation. Lab Data: Labs: Lab Results 09/13/19 09/13/19 09/13/19 Range/Units 08:10 08:10 08:10 WBC 6.5 (4.0-10.0) 10^3/ uL RBC 4.10 (4.1-5.3) 10^6/u L Hgb 12.7 (11.5-15.3) g/dL Hct 36.3 L (37.0-47.0) % MCV 88.5 (81-99) fL MCH 31.0 (28.0-34.0) pg MCHC 35.0 (30.0-36.0) g/dL RDW 11.8 L (12.1-15.1) % Plt Count 172 (130-400) 10^3/c mm MPV 11.0 H (7.4-10.4) fL Neut % (Auto) 56.7 % Lymph % (Auto) 33.2 % Dolores % (Auto) 8.0 % Eos % (Auto) 1.1 % Baso % (Auto) 0.8 % Neut # (Auto) 3.7 (1.8-7.7) 10^3/u L Lymph # (Auto) 2.2 (0.8-4.8) 10^3/u L Dolores # (Auto) 0.5 (0.2-0.9) 10^3/u L Eos # (Auto) 0.1 (0.0-0.8) 10^3/u L Baso # (Auto) 0.1 (0.0-0.1) 10^3/u L Nucleated RBC % (a uto) 0 % Nucleated RBCs # 0.0 /100WBC Sodium 138 (136-145) mmol/L Potassium 3.5 (3.5-5.1) mmol/L Chloride 103 (98-107) mmol/L Carbon Dioxide 24 (22-29) mmol/L Anion Gap 14.5 (5-19) BUN 13 (6-20) mg/dL Creatinine 0.7 (0.5-0.9) mg/dL GFR Calculation 98.3 (90-130) mL/min Glucose 100 (65-115) mg/dL Calculated Osmolal ity 282 L (285-295) mOsm/k g Calcium 9.4 (8.5-10.5) mg/dL Total Bilirubin 0.4 (0.15-1.2) mg/dL AST 20 (0-32) U/L ALT 22 (0-33) U/L Alkaline Phosphata se 67 (35-105) IU/L Troponin T Baselin e 6 (0-10) ng/L Total Protein 7.3 (6.6-8.7) g/dL Albumin 4.4 (3.5-5.2) g/dL Globulin 2.9 (1.3-4.6) g/dL HCG, Qual (Negative) 09/13/19 Range/Units 08:10 WBC (4.0-10.0) 10^3/ uL RBC (4.1-5.3) 10^6/u L Hgb (11.5-15.3) g/dL Hct (37.0-47.0) % MCV (81-99) fL MCH (28.0-34.0) pg MCHC (30.0-36.0) g/dL RDW (12.1-15.1) % Plt Count (130-400) 10^3/c mm MPV (7.4-10.4) fL Neut % (Auto) % Lymph % (Auto) % Dolores % (Auto) % Eos % (Auto) % Baso % (Auto) % Neut # (Auto) (1.8-7.7) 10^3/u L Lymph # (Auto) (0.8-4.8) 10^3/u L Dolores # (Auto) (0.2-0.9) 10^3/u L Eos # (Auto) (0.0-0.8) 10^3/u L Baso # (Auto) (0.0-0.1) 10^3/u L Nucleated RBC % (a uto) % Nucleated RBCs # /100WBC Sodium (136-145) mmol/L Potassium (3.5-5.1) mmol/L Chloride (98-107) mmol/L Carbon Dioxide (22-29) mmol/L Anion Gap (5-19) BUN (6-20) mg/dL Creatinine (0.5-0.9) mg/dL GFR Calculation (90-130) mL/min Glucose (65-115) mg/dL Calculated Osmolal ity (285-295) mOsm/k g Calcium (8.5-10.5) mg/dL Total Bilirubin (0.15-1.2) mg/dL AST (0-32) U/L ALT (0-33) U/L Alkaline Phosphata se (35-105) IU/L Troponin T Baselin e (0-10) ng/L Total Protein (6.6-8.7) g/dL Albumin (3.5-5.2) g/dL Globulin (1.3-4.6) g/dL HCG, Qual Negative (Negative) Imaging Data^: CXR: My impression: NAD EKG Data^: EKG 1: EKG interpretation date: 09/13/19 EKG interpretation time: 07:51 Interpretation: Sinus rhythm Rate [address] elevation or depression changes noted Normal QT interval Discharge Plan Discharge Patient Disposition: Home, Self-Care Clinical Impression: Non-cardiac chest pain Condition: Stable Prescriptions: No Action Aleve 220 mg Tablet 440 mg PO PRN RF: 0 28 mg iron- 800 mcg Tablet 1 tab PO DAILY RF: 0 Discharge Orders: Discharge Order (Routine); Ordered 09/13/19 Ordered By: Nga Orr Patient Instructions: Chest Pain - Noncardiac, Chest Pain - Chest Wall Activity Restrictions/Additional Instructions: As discussed case management should contact you shortly to set you up with a primary care provider. You may return to the emergency department for worsening chest pain, difficulty breathing, shortness of breath, fevers, dizziness/passing out episodes, any other concerns you may have. Coding Level of Care Code ED Manager [facility] for [facility] Fwd Exam Detailed
[2019-09-13 07:47] VITALS: PULSE 91; RESP 18; TEMP 36.7; O2SAT 100; BMI 28.3
--- NOTE | 2019-09-13 07:50 | XRR_ITS ---
PROCEDURE INFORMATION: Exam: XR Chest, 1 View Exam date and time: 09/13/2019 8:45 AM Age: 29 years old Clinical indication: Chest pain; Type not specified; Additional info: Chest pain-mid TECHNIQUE: Imaging protocol: XR of the chest Views: 1 view. COMPARISON: No relevant prior studies available. FINDINGS: Lungs: Unremarkable. No consolidation. Pleural space: Unremarkable. No pleural effusion. No pneumothorax. Heart/Mediastinum: Unremarkable. No cardiomegaly. Bones/joints: Unremarkable. XR/XR chest 1V portable [id number] IMPRESSION: No acute findings.
--- NOTE | 2019-09-13 07:50 | ECG_ITS ---
[facility] Test Date: 2019-09-13 Pat Name: Emmy Francisco Department: Room: Gender: Female Pharmacy Sales Representative: : 1990 Requested By: Nga Orr Order Number: [id number] Witt MD: Criss Bañuelos M.D. Measurements Intervals [place] Rate: 90 P: 73 OR: 157 QRS: 14 QRSD: 96 T: 14 QT: 367 QTc: 451 Interpretive Statements SINUS RHYTHM NONSPECIFIC T-WAVE ABNORMALITY Compared to ECG 08/09/2015 15:59:12 Sinus arrhythmia no longer present Incomplete right bundle-branch block no longer present Early repolarization no longer present T-wave abnormality still present Electronically Signed On 09-14-2019 17:11:11 CDT by Criss Bañuelos M.D. [id number]
[2019-09-13 08:26] LABS: Basophils # 0.1 10^3/uL (0.0-0.1); Basophils % 0.8 %; Eosinophils # 0.1 10^3/uL (0.0-0.8); Eosinophils % 1.1 %; Hematocrit 36.3 % (37.0-47.0); Hemoglobin 12.7 g/dL (11.5-15.3); Lymphocytes # 2.2 10^3/uL (0.8-4.8); Lymphocytes % 33.2 %; Mean Corpuscular Volume 88.5 fL (81-99); Monocytes # 0.5 10^3/uL (0.2-0.9); Neutrophils # 3.7 10^3/uL (1.8-7.7); Neutrophils % 56.7 %; Nucleated Red Blood Cells % 0 %; Platelet Count 172 10^3/cmm (130-400); Red Cell Distribution Width 11.8 % (12.1-15.1); White Blood Count 6.5 10^3/uL (4.0-10.0)
[2019-09-13 08:35] LABS: Alanine Aminotransferase 22 U/L (0-33); Albumin Level 4.4 g/dL (3.5-5.2); Alkaline Phosphatase 67 IU/L (35-105); Anion Gap 14.5 (5-19); Aspartate Amino Transferase 20 U/L (0-32); Blood Urea Nitrogen 13 mg/dL (6-20); Calcium 9.4 mg/dL (8.5-10.5); Carbon Dioxide 24 mmol/L (22-29); Chloride 103 mmol/L (98-107); Globulin 2.9 g/dL (1.3-4.6); Glomerular Filtration Rate 98.3 mL/min (90-130); Glucose 100 mg/dL (65-115); Osmolality Calculated 282 mOsm/kg (285-295); Potassium 3.5 mmol/L (3.5-5.1); Sodium 138 mmol/L (136-145); Total Bilirubin 0.4 mg/dL (0.15-1.2); Total Protein 7.3 g/dL (6.6-8.7); Troponin(5th) Baseline 6 ng/L (0-10)
[2019-09-13 09:02] LABS: HCG, Serum Qual Negative (Negative)
[2019-09-13 09:23] VITALS: BP 104/76; PULSE 62; RESP 16; O2SAT 100
--- NOTE | 2019-09-14 11:40 | DCPLANNER ---
manager java had message to speak with patient about getting established with a primary care physician. manager java called patient, unable to speak with patient at this time. manager java left a voicemail for patient to return nurse case manager phone call.
== END 2019-09-13 09:30 | disposition home or self-care (01) ==
PROVIDERS: Emergency Provider Physician Assistant
DX: R07.89 Other chest pain (principal)
CPT/HCPCS: 12345; 36415; 71045; 80053; 84484; 84703; 85025; 93005; 99282; 99284

== ENCOUNTER → 2020-04-22 12:13 | Outpatient (BNVA) | payer MEDICAID, SELFPAY | PROVIDERS: Visit Provider Nurse Practitioner | DX: J02.9 Acute pharyngitis, unspecified (principal) | CPT/HCPCS: 87071; 87880 ==

== ENCOUNTER → 2021-03-16 14:08 | Outpatient (BNVA) | payer MEDICAID, SELFPAY | PROVIDERS: Visit Provider Family Medicine | DX: R05.9 Cough, unspecified (principal) | CPT/HCPCS: 87400; 87635 ==

== ENCOUNTER 2022-11-13 13:57 | Emergency (ER) | payer SELFPAY ==
[2022-11-13 14:08] VITALS: BP 114/71; PULSE 92; RESP 28; TEMP 36.6; O2SAT 100; BMI 25.4
--- NOTE | 2022-11-13 14:26 | ED_ITS ---
HPI - SOB/Dyspnea General: Chief Complaint: Shortness of Breath/Dyspnea Stated Complaint: SOB Time Seen by Provider: 11/13/22 14:25 Source: patient Mode of arrival: ambulatory History of Present Illness: HPI Narrative: 32-year-old female presents emergency room complaining of shortness of breath she is hyperventilating when she first arrives. She is speaking in clear sentences because of her tachypnea. No chest pain no hemoptysis. Oxygen sats are normal MD elicited complaint: shortness of breath and cough Timing: intermittent Severity: moderate Exacerbating factors: nothing Relieving factors: nothing Associated symptoms: Deny abdominal pain, chest congestion, chest pain, cough, diaphoresis, dizziness, extremity pain, fever(s), hemoptysis, lightheadedness, myalgias, nausea, orthopnea, palpitations, paresthesias, polydipsia, polyuria, rash, sense of impending doom, syncope or vomiting Treatment prior to arrival: none Review of Systems Const: Denies: fever(s), chills or diaphoresis Card: Denies: chest pain, palpitations, lightheadedness, syncope or orthopnea Resp: Denies: dyspnea, hemoptysis or chest congestion GI: Denies: abdominal pain, nausea or vomiting : Denies: flank pain, difficulty voiding, dysuria, urinary frequency or urinary urgency Musc: Denies: extremity pain Skin/Breast: Denies: rash or pruritus Neuro: Denies: dizziness Endo: Denies: polyuria or polydipsia PFSH ED PFSH: Medical History Chronic migraine without aura, with intractable migraine, so stated, with status migrainosus History of supraventricular tachycardia Diagnosed in 2003 in her first . She states she underwent an cardiac ablative procedure in 2004 in [facility] and since then she has had no problems with tachycardia. Seizure disorder headache induced Surgical History H/O LEEP (~2009) [place]- 2 on pathology History of radiofrequency ablation (RFA) procedure for cardiac arrhythmia (~2004) To treat SVT Wrist fracture left at age 6; right at age 8 Family History Father Hypertension Diabetes Grandmother Hypertension Paternal Diabetes Paternal Left cleft palate paternal Breast cancer paternal Mother Heart disease Family/Other Left cleft palate cousins Patient denies medical problems Denies family history of: Cervical, uterine, ovarian, colon cancer, DVT/PE Social History Smoking and tobacco status: never smoked Alcohol intake: former Substance/Drug Use: former Date of last use: 2014 Other details last substance use: Reports history of methamphetamine, cocaine and marijuana use Current gender identity: Female Physical Exam Const: GENERAL APPEARANCE: cooperative and comfortable ORIENTATION/CONSCIOUSNESS: Yes awake, Yes oriented to person, Yes oriented to place and Yes oriented to time HENMT: COMMON NORMALS: normocephalic, atraumatic and hearing grossly normal bilaterally HEAD & SCALP: normocephalic and atraumatic Resp: COMMON NORMALS: normal respiratory effort, No retractions, No use of accessory muscles and clear to auscultation bilaterally AUSCULTATION: clear to auscultation bilaterally Cardio: COMMON NORMALS: regular rate, regular rhythm and No murmurs present (Cardio) RATE: regular rate RHYTHM: regular rhythm GI: COMMON NORMALS: Soft to palpation and No hepatosplenomegaly present AUSCULTATION: Yes normoactive bowel sounds PALPATION: Yes Soft to palpation, No Tenderness to palpation present (GI), No Guarding due to palpation present (GI) and Yes No hepatosplenomegaly present Extremity: COMMON NORMALS: normal to inspection, capillary refill normal, no clubbing, cyanosis or edema, no calf tenderness and no pedal edema Neuro: SENSORIUM/ORIENTATION: Yes oriented to person, Yes oriented to place and Yes oriented to time Skin: COMMON NORMALS: no rashes or lesions noted GENERAL SKIN EXAM: no rashes or lesions noted Course Vital Signs: Vital signs: Vital Signs Temperature 97.8 F 11/13/22 14:08 Pulse Rate 92 11/13/22 14:08 Respiratory Rate 28 H 11/13/22 14:08 Blood Pressure 100/60 11/13/22 16:18 Pulse Oximetry 98 11/13/22 16:18 Oxygen Delivery Me thod Room Air 11/13/22 16:18 MDM - SOB/Dyspnea Medical Decision Making Chest x-ray normal patient improved with Ativan. Will discharge patient home follow-up with primary care. Discharged home with as needed Ativan as well recommend following up with primary care [facility]. Medical Records I reviewed the patient's medical records. Lab Data I reviewed the patient's lab results. Labs/Radiology: Radiology Impressions Chest X-Ray 11/13/22 14:56 IMPRESSION: No acute cardiopulmonary abnormality. Laboratory Results Specimen Type Arterial 11/13/22 14:31 Sample Site Brachial, left 11/13/22 14:31 ABG pH 7.48 (7.35-7.45) H 11/13/22 14:31 ABG pCO2 33.7 mmHg (35-45) L 11/13/22 14:31 ABG pO2 73.4 mmHg (80.0-100.0) L 11/13/22 14:31 ABG HCO3 24.9 mmol/L (22-26) 11/13/22 14:31 ABG O2 Saturation 95.9 11/13/22 14:31 ABG Base Excess 1.7 mmol/L (-2.0-2.0) 11/13/22 14:31 Lance Test Pos 11/13/22 14:31 A-a O2 Gradient 4.4 mmHg (5-10) L 11/13/22 14:31 Hematocrit 38.7 % (37-47) 11/13/22 14:31 Hgb O2 Saturation 94.5 % (95-100) L 11/13/22 14:31 Carboxyhemoglobin 1.0 %THgb (0.4-20.1) 11/13/22 14:31 Methemoglobin 0.6 % (0.4-1.5) 11/13/22 14:31 Total Hemoglobin 12.6 g/dL (12-16) 11/13/22 14:31 Sodium 142.0 mmol/L (131-143) 11/13/22 14:31 Potassium 3.7 mmol/L (3.5-5.0) 11/13/22 14:31 Glucose 103.0 mg/dL (70-115) 11/13/22 14:31 Ionized Calcium 1.2 mmol/L (1.1-1.4) 11/13/22 14:31 O2 Delivery Device Room air 11/13/22 14:31 FiO2 21.0 % 11/13/22 14:31 Court Registry Officer ID Isiah 11/13/22 14:31 Discharge Plan Discharge Patient Disposition: Home Clinical Impression: Hyperventilation Condition: Stable Prescriptions: New Ativan 2 mg tablet 2 mg PO TID PRN (Reason: anxiety) Qty: 10 0RF No Action Imitrex 25 mg Tablet See Rx Instructions .ROUTE .COMPLEX PRN (Reason: Migraine Headache) Rx Instructions: 25 mg orally at onset of headache. May repeat in 2 hours. ;do not exceed 8 doses per 24 hrs dicyclomine 20 mg Tablet 20 mg PO QID Zofran ODT 4 mg Tablet,Disintegrating 4 mg PO Q6H PRN (Reason: Nausea And Vomiting) Discharge Orders: Discharge ED (Routine); Ordered 11/13/22 Ordered By: Rohan Mcmahon Referrals: Lucas,HEVER RenteriaP [Primary Care Provider] - Discharge Diet: Usual diet Discharge Activity: Resume usual activity Patient Instructions: Opioid Safety, Pain Management Coding Level of Care Code ED Swaging Machine Adjuster for Parul Swann
[2022-11-13 14:42] LABS: Blood Gas Allen Test Pos; Blood Gas Operator Identificat WALCI; Blood Gas Sample Type Arterial; Ionized Calcium Level - ABG 1.2 mmol/L (1.1-1.4); Oxygen Device ROOM AIR
--- NOTE | 2022-11-13 14:56 | XRR_ITS ---
PROCEDURE INFORMATION: Exam: XR Chest Exam date and time: 11/13/2022 3:09 PM Age: 32 years old Clinical indication: Dyspnea; Additional info: Dyspnea/cough TECHNIQUE: Imaging protocol: Radiologic exam of the chest. Views: 1 view. COMPARISON: CR XR chest 1V portable [id number] 09/13/2019 8:12 AM FINDINGS: Lungs: Evidence for mild benign healed granulomatous disease of the right mid mediastinal and hilar region and adjacent right lung. This is unchanged with prior exam. No focal infiltrate or consolidation. Pleural spaces: Unremarkable. No pleural effusion. No pneumothorax. Heart/Mediastinum: Cardiac size is within normal limits. Bones/joints: Visualized osseous structures show no acute abnormality. Minimal thoracic scoliosis. Other findings: No significant change with prior exam. XR/XR chest 1V portable [id number] IMPRESSION: No acute cardiopulmonary abnormality.
[2022-11-13 14:57] LABS: ABG PCO2 33.7 mmHg (35-45); ABG PH Result 7.48 (7.35-7.45); Alveolar-Arterial Oxygen Gradi 4.4 mmHg (5-10); Arterial Blood Gas Hematocrit 38.7 % (37-47); Base Excess ABG 1.7 mmol/L (-2.0-2.0); Blood Gas Sample Site Brachial, left; HCO3 ABG 24.9 mmol/L (22-26); HGB O2 Sat 94.5 % (95-100); Methemoglobin 0.6 % (0.4-1.5); Oxygen Saturation ABG 95.9; PO2 ABG 73.4 mmHg (80.0-100.0); Potassium Level - ABG 3.7 mmol/L (3.5-5.0); Total Hemoglobin 12.6 g/dL (12-16)
[2022-11-13] MEDS: LORazepam 2 mg Tablet PO (15:50)
[2022-11-13 16:18] VITALS: BP 100/60; O2SAT 98
== END 2022-11-13 16:19 | disposition home or self-care (01) ==
PROVIDERS: Emergency Provider Family Medicine; PCP Nurse Practitioner Family
DX: R06.4 Hyperventilation (principal)
CPT/HCPCS: 36600; 71045; 80051; 82330; 82805; 99283

== ENCOUNTER 2023-09-27 23:11 | Emergency (ER) | payer OTHER, SELFPAY ==
[2023-09-27 23:20] VITALS: BP 109/71; PULSE 72; RESP 16; TEMP 36.7; O2SAT 100
--- NOTE | 2023-09-28 00:08 | ED_ITS ---
HPI - Dental/Oral General: Chief complaint: Dental/Oral Stated complaint: Mouth/ear pain Time Seen by Provider: 09/27/23 23:56 Source: patient Mode of arrival: ambulatory Limitations: no limitations History of Present Illness: Patient is a 33-year-old female who presents the emergency department complaining of left upper dental pain for the past 2 weeks. She has been taking Tylenol and ibuprofen but this has not been helping. States she sees a dentist once a year, is set to see her dentist in November. Pain is gotten too severe to where it has been affecting her sleeping. Reports history of cavities, denies ever having a dental abscess. She denies any fever, nausea, vomiting, or any other symptoms at this time. She does note that the pain is starting to extend to her left face and left ear region. MD Complaint: tooth pain Onset (ago): week(s) Duration: constant Severity: severe Relieving factors: nothing Context: history of dental caries Associated symptoms: Reports ear or mastoid pain; Denies fever(s) Treatment prior to arrival: other (Tylenol and ibuprofen) Review of Systems General: Reports: 10 or more systems reviewed and unremarkable except in HPI and below Const: Denies: fever(s), chills or fatigue Eyes: Denies: change in vision ENMT: Reports: dental pain, ear or mastoid pain and sinus pain Card: Denies: chest pain, palpitations, swelling of feet/ankles or lightheadedness Resp: Denies: dyspnea, productive cough or wheezing GI: Denies: abdominal pain, nausea, vomiting, diarrhea or constipation : Denies: flank pain, difficulty voiding, dysuria or urinary frequency Musc: Denies: neck pain, back pain or joint pain Skin/Breast: Denies: rash Neuro: Denies: headache(s), numbness in extremities or weakness in extremities PFSH ED PFSH: Medical History History of supraventricular tachycardia Diagnosed in 2003 in her first . She states she underwent an cardiac ablative procedure in 2004 in [facility] and since then she has had no problems with tachycardia. Seizure disorder headache induced Chronic migraine without aura, with intractable migraine, so stated, with status migrainosus Surgical History H/O LEEP (~2009) [place]- 2 on pathology Wrist fracture left at age 6; right at age 8 History of radiofrequency ablation (RFA) procedure for cardiac arrhythmia (~2004 ) To treat SVT Family History Father Hypertension Diabetes Grandmother Hypertension Paternal Diabetes Paternal Left cleft palate paternal Breast cancer paternal Mother Heart disease Family/Other Left cleft palate cousins Patient denies medical problems Denies family history of: Cervical, uterine, ovarian, colon cancer, DVT/PE Social History Smoking and tobacco/nicotine status: never used tobacco/nicotine Alcohol intake: former Substance/Drug Use: former Date of last use: 2014 Current gender identity: Female Female Reproductive History: Date of last menstrual period: 09/18/23 Physical Exam Const: COMMON NORMALS: no acute distress and no limitations GENERAL APPEARANCE: cooperative and well developed ORIENTATION/CONSCIOUSNESS: Yes awake HENMT: COMMON NORMALS: normocephalic, atraumatic and hearing grossly normal bilaterally HEAD & SCALP: normocephalic and atraumatic TEETH & GINGIVA: Yes abnormal tooth and associated gingiva upper left tender and with associated gingival edema, Yes caries, Yes multiple restorations and Yes poor dentition Eye: COMMON NORMALS: Equal, round and reactive pupils present, EOMs intact bilaterally and conjunctivae normal CONJUNCTIVA: Yes conjunctivae normal PUPIL: Yes Equal, round and reactive pupils present Neck/C-Spine: COMMON NORMALS: full ROM, supple and no JVD Resp: COMMON NORMALS: normal respiratory effort, No retractions, No use of accessory muscles and clear to auscultation bilaterally AUSCULTATION: clear to auscultation bilaterally Cardio: COMMON NORMALS: no JVD, regular rate, regular rhythm, No clicks present (Cardio), No murmurs present (Cardio) and No rub (Cardio) RATE: regular rate RHYTHM: regular rhythm Extremity: COMMON NORMALS: normal to inspection, full ROM and capillary refill normal Psych: COMMON NORMALS: mental status grossly normal and Normal thought process present THOUGHT PROCESS: Normal thought process present Skin: COMMON NORMALS: no rashes or lesions noted GENERAL SKIN EXAM: no rashes or lesions noted Course Vital Signs: Vital signs: Vital Signs Temperature 98.0 F 09/27/23 23:20 Pulse Rate 72 09/27/23 23:20 Respiratory Rate 16 09/27/23 23:20 Blood Pressure 109/71 09/27/23 23:20 Pulse Oximetry 100 09/27/23 23:20 Oxygen Delivery Me thod Room Air 09/27/23 23:20 MDM - Dental/Oral Medical Decision Making Patient presented with left upper dental pain for the past 2 weeks, no relief from Tylenol and ibuprofen. Her vitals were normal on arrival. Examination of her left upper dentition did reveal some edema and overall her dental care seemed poor with multiple caries and restorations. She does see a dentist annually, is set to see dentist in November. At this time, and due to her clinical presentation of expanding pain to her left ear, I do believe she has a dental abscess that would benefit from antibiotic therapy. She is additionally given a shot of steroids here in the emergency department and a dose of hydrocodone to take tonight, is driving her home. She will continue follow-up with dentist and reasons to return discussed. No radiology studies performed this visit Discharge Plan Discharge Patient Disposition: Home Clinical Impression: Dental abscess Condition: Stable Prescriptions: New amoxicillin-pot clavulanate 875-125 mg tablet 1 tab PO BID 10 Days Qty: 20 0RF No Action Imitrex 25 mg Tablet See Rx Instructions .ROUTE .COMPLEX PRN (Reason: Migraine Headache) Rx Instructions: 25 mg orally at onset of headache. May repeat in 2 hours. ;do not exceed 8 doses per 24 hrs dicyclomine 20 mg Tablet 20 mg PO QID Zofran ODT 4 mg Tablet,Disintegrating 4 mg PO Q6H PRN (Reason: Nausea And Vomiting) Ativan 2 mg tablet 2 mg PO TID PRN (Reason: anxiety) Qty: 10 0RF Discharge Orders: Discharge ED (Routine); Ordered 09/28/23 Ordered By: Zack Moscoso Referrals: Myra Lucas FNP [Primary Care Provider] - Discharge Diet: Usual diet Discharge Activity: Increase activity as tolerated Patient Instructions: Dental Abscess (ED), Opioid Safety, Pain Management Activity Restrictions/Additional Instructions: Take Augmentin as prescribed. Please follow-up with dentist as already scheduled. Tylenol ibuprofen at home for any further pain relief. Return with any new or concerning symptoms. Coding Level of Care Code ED Cargo Tank Mechanic for Parul Swann
[2023-09-28] MEDS: amoxicillin-clav 875-125 mg Tablet 1 TAB PO (00:15)
[2023-09-28] MEDS: HYDROcodone-acetaminophen 7.5-325 mg Tablet 1 TAB PO (00:15)
[2023-09-28] MEDS: dexamethasone 10 mg/mL INJ IM (00:15)
[2023-09-28 00:22] VITALS: RESP 16
== END 2023-09-28 00:23 | disposition home or self-care (01) ==
PROVIDERS: Emergency Provider Physician Assistant; PCP Nurse Practitioner Family
DX: K04.7 Periapical abscess without sinus (principal)
CPT/HCPCS: 96372; 99284; J1100

== ENCOUNTER 2023-09-30 01:47 | Emergency (ER) | payer OTHER, SELFPAY ==
[2023-09-30 01:52] VITALS: BP 115/73; PULSE 79; RESP 16; TEMP 37; O2SAT 99; BMI 25.2
[2023-09-30 01:55] VITALS: BP 115/73; PULSE 73; RESP 16; O2SAT 99
--- NOTE | 2023-09-30 01:56 | W.ED.DENTAL ---
HPI - Dental/Oral General: Chief complaint: Dental/Oral Stated complaint: Left side of face swelling Time Seen by Provider: 09/30/23 01:52 History of Present Illness: Presents to the ER with complaints of left-sided facial swelling and dental pain. Patient has known cavities on her left lower mandibular region. She has been to the emergency room once in urgent care once and this is the third time she seen in 3 days. Patient was given a shot of Toradol in urgent care and was prescribed amoxicillin with clavulanic acid 2 days ago in the ER. Patient says she has been taking these is just Getting worse. Patient still able to breathe with no difficulty with swallowing pills has been came challenging. Review of Systems General: Reports: 10 or more systems reviewed and unremarkable except in HPI and below PFSH ED PFSH: Medical History History of supraventricular tachycardia Diagnosed in 2003 in her first . She states she underwent an cardiac ablative procedure in 2004 in [facility] and since then she has had no problems with tachycardia. Seizure disorder headache induced Chronic migraine without aura, with intractable migraine, so stated, with status migrainosus Surgical History H/O LEEP (~2009) [place]- 2 on pathology Wrist fracture left at age 6; right at age 8 History of radiofrequency ablation (RFA) procedure for cardiac arrhythmia (~2004) To treat SVT Family History Father Hypertension Diabetes Grandmother Hypertension Paternal Diabetes Paternal Left cleft palate paternal Breast cancer paternal Mother Heart disease Family/Other Left cleft palate cousins Patient denies medical problems Denies family history of: Cervical, uterine, ovarian, colon cancer, DVT/PE Social History Smoking and tobacco/nicotine status: unknown if used tobacco/nicotine Alcohol intake: former Substance/Drug Use: former Date of last use: 2014 Current gender identity: Female Female Reproductive History: Date of last menstrual period: 09/18/23 Physical Exam Const: COMMON NORMALS: no acute distress, average body habitus, patient oriented x3, no limitations, healthy appearing, alert and well nourished HENMT: COMMON NORMALS: normocephalic, atraumatic, hearing grossly normal bilaterally, external ears normal, Normal external nose present and moist oral mucous membranes; dentition not normal (Very poor dentition with multiple necrotic teeth on the left ) HEAD & SCALP: normocephalic and atraumatic NOSE: Normal external nose present EXTERNAL EAR: Yes external ears normal Neck/C-Spine: COMMON NORMALS: full ROM, supple, no meningeal signs, no JVD and Thyroid normal; negative for no lymphadenopathy (Mild anterior cervical lymphadenopathy on the left) THYROID: Thyroid normal Chest: COMMONS NORMALS: normal inspection of the chest and normal palpation of entire chest wall Resp: COMMON NORMALS: normal respiratory effort, No retractions, No use of accessory muscles and clear to auscultation bilaterally AUSCULTATION: clear to auscultation bilaterally Cardio: COMMON NORMALS: no JVD, regular rate, regular rhythm, S1 normal heart sound present, S2 normal heart sound present, No gallops present (Cardio), No clicks present (Cardio), No murmurs present (Cardio) and No rub (Cardio) RATE: regular rate RHYTHM: regular rhythm HEART SOUNDS: S1 normal heart sound present and S2 normal heart sound present Neuro: COMMON NORMALS: patient oriented x3 SENSORIUM/ORIENTATION: Yes alert MENINGEAL SIGNS: Yes no meningeal signs Course Vital Signs: Vital signs: Vital Signs Temperature 98.6 F 09/30/23 01:52 Pulse Rate 78 09/30/23 02:25 Respiratory Rate 16 09/30/23 02:25 Blood Pressure 115/73 09/30/23 02:25 Pulse Oximetry 99 09/30/23 02:25 Oxygen Delivery Me thod Room Air 09/30/23 01:55 MDM - Dental/Oral Medical Decision Making Patient was given p.o. dexamethasone, cefdinir and Tylenol 3, patient will be transitioned over to oral clindamycin by prescription. Patient should follow-up with her family practitioner and/or dentist in the next several days to arrange further evaluation and treatment. Differential Diagnosis Likely dental caries Medical Records I reviewed the patient's medical records. Lab Data I reviewed the patient's lab results. No radiology studies performed this visit Discharge Plan Discharge Patient Disposition: Home Clinical Impression: Dental caries, Toothache Condition: Stable Prescriptions: New clindamycin palmitate HCl 75 mg/5 mL recon soln 20 ml PO Q6H 7 Days Qty: 560 0RF Discontinued amoxicillin-pot clavulanate 875-125 mg tablet 1 tab PO BID 10 Days Qty: 20 0RF No Action Imitrex 25 mg Tablet See Rx Instructions .ROUTE .COMPLEX PRN (Reason: Migraine Headache) Rx Instructions: 25 mg orally at onset of headache. May repeat in 2 hours. ;do not exceed 8 doses per 24 hrs dicyclomine 20 mg Tablet 20 mg PO QID Zofran ODT 4 mg Tablet,Disintegrating 4 mg PO Q6H PRN (Reason: Nausea And Vomiting) Ativan 2 mg tablet 2 mg PO TID PRN (Reason: anxiety) Qty: 10 0RF Discharge Orders: Discharge ED (Routine); Ordered 09/30/23 Ordered By: Osvaldo Bertrand Referrals: Myra Lucas FNP [Primary Care Provider] - 1 week Patient Instructions: Dental Abscess (ED) Activity Restrictions/Additional Instructions: Please stop using your amoxicillin and start using clindamycin. Take all medicine as prescribed. Please call your family practice physician or dentist office first thing in the morning to arrange appropriate follow-up. Coding Level of Care Code ED Corduroy Cutter Operator for Parul Swann
[2023-09-30] MEDS: acetaminophen-codeine 120-12 mg/5 mL UDC 10 ML PO (02:12)
[2023-09-30] MEDS: cefdinir 250mg/5 mL Oral Susp 60 mL Bulk 500 MG PO (02:14)
[2023-09-30] MEDS: dexamethasone 10 mg/mL INJ PO (02:15)
[2023-09-30 02:25] VITALS: BP 115/73; PULSE 78; RESP 16; O2SAT 99
--- NOTE | 2023-09-30 02:32 | PC.NURSE ---
sent 2 tab hydrocodone with pt. gave directions to take every six hours for pain.
== END 2023-09-30 02:33 | disposition home or self-care (01) ==
PROVIDERS: Emergency Provider Emergency Medicine; PCP Nurse Practitioner Family
DX: K02.9 Dental caries, unspecified (principal)
CPT/HCPCS: 99283; J1100

== ENCOUNTER 2023-12-17 11:44 | Emergency (ER) | payer SELFPAY ==
[2023-12-17 12:27] LABS: Basophils # 0.1 10^3/uL (0.0-0.1); Basophils % 0.8 %; Eosinophils # 0.1 10^3/uL (0.0-0.8); Eosinophils % 1.3 %; Hematocrit 38.3 % (36-47); Lymphocytes # 1.7 10^3/uL (0.8-4.8); Lymphocytes % 27.3 %; Mean Corpuscular HGB Conc 33.2 g/dL (30-55); Mean Corpuscular Hemoglobin 30.2 pg (27-33); Mean Platelet Volume 9.7 fL (7.4-10.4); Monocytes # 0.4 10^3/uL (0.2-0.9); Monocytes % 6.8 %; Neutrophils % 63.5 %; Nucleated Red Blood Cells % 0 %; Platelet Count 198 10^3/cmm (157-399); Red Blood Count 4.21 10^6/uL (3.85-5.65); Red Cell Distribution Width 12.7 % (12.1-15.1)
[2023-12-17 12:45] LABS: Alanine Aminotransferase 12 U/L (0-33); Albumin Level 4.3 g/dL (3.5-5.2); Alkaline Phosphatase 69 U/L (35-105); Anion Gap 10.4 (5-19); Aspartate Amino Transferase 12 U/L (0-32); Blood Urea Nitrogen 9 mg/dL (6-20); Calcium 9.1 mg/dL (8.5-10.5); Carbon Dioxide 29 mmol/L (22-29); Chloride 106 mmol/L (98-107); Globulin 2.8 g/dL (1.3-4.6); Glomerular Filtration Rate 114.4 mL/min (90-130); Glucose 97 mg/dL (65-115); Lipase 62 U/L (13-60); Osmolality Calculated 291 mOsm/kg (285-295); Potassium 4.4 mmol/L (3.5-5.1); Sodium 141 mmol/L (136-145); Total Bilirubin 0.2 mg/dL (0.15-1.2); Total Protein 7.1 g/dL (6.6-8.7)
[2023-12-17 13:13] VITALS: BP 118/81; PULSE 68; RESP 18; TEMP 36.6; O2SAT 100; BMI 23.8
[2023-12-17 13:27] LABS: HCG Qualitative Urine. Negative (Negative)
[2023-12-17 13:28] LABS: Bilirubin Urine Negative (Negative); Blood Urine Negative (Negative); Glucose Urine UA Negative (Normal); Ketones Urine Negative (Negative); Leukocyte Esterase Urine Negative (Negative); Nitrate Urine Negative (Negative); Protein Urine Negative (Negative); Specific Gravity, Urine 1.014 (1.005-1.030); Urine Appearance Clear (CLEAR); Urine Color Yellow (Yellow); pH Urine 8.5 (5-7)
[2023-12-17 13:33] LABS: Add Urine Microscopic? YES; Bacteria Urine None Seen /hpf; Hyaline Casts Urine 0-4 /lpf; RBC Urine 0-2 /hpf (0-2); Squamous Epithelial Cell Urine 0-5 /hpf (0-5); WBC Urine 0-5 /hpf (0-5)
[2023-12-17 14:50] VITALS: BP 113/82; RESP 14; O2SAT 100
--- NOTE | 2023-12-17 14:57 | USR_ITS ---
PROCEDURE INFORMATION: Exam: US Pelvis, Transvaginal, Non-Obstetric Exam date and time: 12/17/2023 4:01 PM Age: 33 years old Clinical indication: Pelvic pain; Additional info: Right adnexal pain, abnormal bleeding, HX of large cyst on right, didn't have f/u TECHNIQUE: Imaging protocol: Real-time transvaginal pelvic (non-obstetric) ultrasound with image documentation. Transvaginal imaging was used for better evaluation of the endometrium, adnexa, and/or cervix. COMPARISON: US pelv w/transvag [id number] 04/04/2019 6:50 PM FINDINGS: Uterus: Cervical cysts are noted. Uterus is normal in size. Endometrial stripe measures 6 mm. Right ovary/adnexa: The right ovary contains a 1.3 cm simple cyst. Good Doppler flow noted. Left ovary/adnexa: The left ovary contains a 2 cm simple cyst. Good Doppler flow noted. Urinary bladder: Urinary bladder is limited. Intraperitoneal space: A small amount of free fluid is noted. US/US transvaginal [id number] IMPRESSION: 1. Small bilateral ovarian cysts with free fluid 2. Cervical cysts
--- NOTE | 2023-12-17 14:58 | ED_ITS ---
HPI - Abdominal Pain 2 General: Chief Complaint: Abdominal Pain Stated Complaint: Rt lower side pain Time Seen by Provider: 12/17/23 14:46 History of Present Illness: 33-year-old female reports she started h aving some vaginal bleeding on 12/11. Bleeding lasted for about 3 days and then was followed by right lower quadrant abdominal and pelvic pain. The pain is relatively constant and worse with some positions compared to others. Patient does have a history of a large right ovarian cyst in the past. This was diagnosed during early stages of COVID and she never had any follow-up. She does not endorse any chronic pelvic pain. She does not endorse any concern for STDs. No urinary symptoms or abnormal stools. No loss of appetite, fever, chills, nausea or vomiting. No flank pain. Associated Symptoms: Denies chills, diarrhea, dysuria, fever(s), nausea, syncope and vomiting Related Data Date of Last Menstrual Period: 12/12/23 Home Medications Medication Instructions Recorded Confirmed dicyclomine 20 mg tablet 20 mg PO QID 11/13/22 09/29/23 ondansetron 4 mg disintegrating 4 mg PO Q6H PRN Nausea And Vomiting 11/13/22 09/29/23 tablet sumatriptan succinate 25 mg tablet See Rx Instructions .Route 11/13/22 09/29/23 (Imitrex) .COMPLEX PRN Migraine Headache Previous Rx's Medication Instructions Recorded lorazepam 2 mg tablet (Ativan) 2 mg PO TID PRN anxiety #10 tabs 11/13/22 hydrocodone 5 mg-acetaminophen 325 1 tab PO Q6H PRN pain #14 tabs 12/17/23 mg tablet naproxen 500 mg tablet 250 mg (1/2 x 500 mg) PO Q8H PRN 12/17/23 pain #20 tabs ondansetron 4 mg disintegrating 4 mg PO Q6H PRN nausea and 12/17/23 tablet vomiting #14 tabs Allergies Allergy/AdvReac Type Severity Reaction Status Date / Time doxycycline AdvReac ADR-Vomitin Verified 12/17/23 13:18 g Review of Systems 2 General: Reports: 10 or more systems reviewed and unremarkable except in HPI and below Const: Denies: fever(s), chills or body aches Eyes: Denies: change in vision ENMT: Denies: throat pain Card: Denies: chest pain, edema or syncope Resp: Denies: dyspnea or productive cough GI: Denies: nausea, vomiting or diarrhea : Denies: flank pain, dysuria or urinary frequency Musc: Denies: neck pain, back pain, extremity pain or extremity swelling Skin/Breast: Denies: rash or erythema PFSH ED 2 PFSH: Medical History History of supraventricular tachycardia Diagnosed in 2003 in her first . She states she underwent an cardiac ablative procedure in 2004 in [facility] and since then she has had no problems with tachycardia. Seizure disorder headache induced Chronic migraine without aura, with intractable migraine, so stated, with status migrainosus Surgical History H/O LEEP (~2009) [place]- 2 on pathology Wrist fracture left at age 6; right at age 8 History of radiofrequency ablation (RFA) procedure for cardiac arrhythmia (~2004) To treat SVT Family History Father Hypertension Diabetes Grandmother Hypertension Paternal Diabetes Paternal Left cleft palate paternal Breast cancer paternal Mother Heart disease Family/Other Left cleft palate cousins Patient denies medical problems Denies family history of: Cervical, uterine, ovarian, colon cancer, DVT/PE Social History Smoking and tobacco/nicotine status: unknown if used tobacco/nicotine Alcohol intake: former Substance/Drug Use: former Date of last use: 2014 Current gender identity: Female Female Reproductive History: Date of last menstrual period: 12/12/23 Physical Exam 2 Const: COMMON NORMALS: no limitations, alert and well nourished EXAM LIMITATIONS: no altered mental status HENMT: COMMON NORMALS: normocephalic, atraumatic and external ears normal H EAD & SCALP: normocephalic and atraumatic EXTERNAL EAR: Yes external ears normal MOUTH: no muffled voice Eye: COMMON NORMALS: EOMs intact bilaterally, conjunctivae normal and no scleral icterus CONJUNCTIVA: Yes conjunctivae normal Neck/C-Spine: COMMON NORMALS: no JVD GENERAL: Yes normal visual inspection and Yes trachea midline Resp: COMMON NORMALS: normal respiratory effort, No use of accessory muscles and clear to auscultation bilaterally AUSCULTATION: clear to auscultation bilaterally Cardio: COMMON NORMALS: no JVD, regular rate and regular rhythm RATE: r egular rate RHYTHM: regular rhythm GI: COMMON NORMALS: Soft to palpation PALPATION: Yes Soft to palpation O THER: Tenderness right lower quadrant, suprapubic with some guarding. Mild peritonitis suspected. Heelstrike on the right does cause right lower quadrant pain. No CVA percussion tenderness. Extremity: COMMON NORMALS: normal to inspection Neuro: COMMON NORMALS: moves all extremities, no focal motor deficits and no sensory deficits noted SENSORIUM/ORIENTATION: Yes alert SPEECH: speech normal Psych: COMMON NORMALS: mental status grossly normal, Normal thought process present, cooperative, normal affect and speech normal SPEECH: Yes normal speech THOUGHT PROCESS: Normal thought process present Skin: COMMON NORMALS: no rashes or lesions noted, turgor normal and no jaundice GENERAL SKIN EXAM: no rashes or lesions noted and turgor normal Course 2 ED course: 1700 Still awaiting pelvis US Reevaluation(s): Reevaluation #1: Patient's ultrasound showed small ovarian cysts and some free fluid in the pelvis. I went back and discussed with her and her significant other. I suspect this is due to hemorrhagic cyst with rupture but cannot be 100% sure. We talked about the option of doing a CT scan of the abdomen and pelvis. However with no fever, chills, white count, left shift, anorexia and with vaginal bleeding midcycle prior to the onset of pain, she has decided to watch and wait. Therefore we discussed specific return precautions. Patient can be discharged with NSAIDs and [place] as needed for pain. Vital Signs: Vital signs: Vital Signs Temperature 97.9 F 12/17/23 13:13 Pulse Rate 68 12/17/23 13:13 Respiratory Rate 14 12/17/23 14:50 Blood Pressure 113/82 12/17/23 14:50 Pulse Oximetry 100 12/17/23 14:50 Oxygen Delivery Me thod Room Air 12/17/23 14:50 MDM - Abdominal Pain Medical Decision Making Suspect right-sided ovarian cyst with rupture and some hemorrhage into the pelvis causing localized peritonitis. Lower suspicion at this point for appendicitis. No anorexia, fever, chills. Had vaginal bleeding midcycle before the pain started. History of ovarian cyst. Additionally, normal vitals, normal CBC, CMP, UA, UPT. Will proceed with ultrasound of the pelvis. Lab Data 12/17/23 12:15 12/17/23 12:15 Labs/Radiology: Radiology Impressions Transvaginal US 12/17/23 14:57 IMPRESSION: 1. Small bilateral ovarian cysts with free fluid 2. Cervical cysts Laboratory Results WBC 6.30 10^3/uL (3.29-11.43) 12/17/23 12:15 RBC 4.21 10^6/uL (3.85-5.65) 12/17/23 12:15 Hgb 12.70 g/dL (11.27-16.99) 12/17/23 12:15 Hct 38.3 % (36-47) 12/17/23 12:15 MCV 91.0 fl (85-98) 12/17/23 12:15 MCH 30.2 pg (27-33) 12/17/23 12:15 MCHC 33.2 g/dL (30-55) 12/17/23 12:15 RDW 12.7 % (12.1-15.1) 12/17/23 12:15 Plt Count 198 10^3/cmm (157-399) 12/17/23 12:15 MPV 9.7 fL (7.4-10.4) 12/17/23 12:15 Neut % (Auto) 63.5 % 12/17/23 12:15 Lymph % (Auto) 27.3 % 12/17/23 12:15 Mower % (Auto) 6.8 % 12/17/23 12:15 Eos % (Auto) 1.3 % 12/17/23 12:15 Baso % (Auto) 0.8 % 12/17/23 12:15 Neut # (Auto) 4.00 10^3/uL (1.8-7.7) 12/17/23 12:15 Lymph # (Auto) 1.7 10^3/uL (0.8-4.8) 12/17/23 12:15 Mower # (Auto) 0.4 10^3/uL (0.2-0.9) 12/17/23 12:15 Eos # (Auto) 0.1 10^3/uL (0.0-0.8) 12/17/23 12:15 Baso # (Auto) 0.1 10^3/uL (0.0-0.1) 12/17/23 12:15 Nucleated RBC % (auto) 0 % 12/17/23 12:15 Nucleated RBCs # 0.0 /100WBC 12/17/23 12:15 Sodium 141 mmol/L (136-145) 12/17/23 12:15 Potassium 4.4 mmol/L (3.5-5.1) 12/17/23 12:15 Chloride 106 mmol/L (98-107) 12/17/23 12:15 Carbon Dioxide 29 mmol/L (22-29) 12/17/23 12:15 Anion Gap 10.4 (5-19) 12/17/23 12:15 BUN 9 mg/dL (6-20) 12/17/23 12:15 Creatinine 0.6 mg/dL (0.5-0.9) 12/17/23 12:15 GFR Calculation 114.4 mL/min (90-130) 12/17/23 12:15 Glucose 97 mg/dL (65-115) 12/17/23 12:15 Calculated Osmolality 291 mOsm/kg (285-295) 12/17/23 12:15 Calcium 9.1 mg/dL (8.5-10.5) 12/17/23 12:15 Total Bilirubin 0.2 mg/dL (0.15-1.2) 12/17/23 12:15 AST 12 U/L (0-32) 12/17/23 12:15 ALT 12 U/L (0-33) 12/17/23 12:15 Alkaline Phosphatase 69 U/L (35-105) 12/17/23 12:15 Total Protein 7.1 g/dL (6.6-8.7) 12/17/23 12:15 Albumin 4.3 g/dL (3.5-5.2) 12/17/23 12:15 Globulin 2.8 g/dL (1.3-4.6) 12/17/23 12:15 Lipase 62 U/L (13-60) H 12/17/23 12:15 HCG, Qual Negative (Negative) 12/17/23 13:21 Urine Color Yellow (Yellow) 12/17/23 13:21 Urine Appearance Clear (CLEAR) 12/17/23 13:21 Urine pH 8.5 (5-7) A 12/17/23 13:21 Ur Specific [place] 1.014 (1.005-1.030) 12/17/23 13:21 Urine Protein Negative (Negative) 12/17/23 13:21 Urine Glucose (UA) Negative (Normal) 12/17/23 13:21 Urine Ketones Negative (Negative) 12/17/23 13:21 Urine Blood Negative (Negative) 12/17/23 13:21 Urine Nitrate Negative (Negative) 12/17/23 13:21 Urine Bilirubin Negative (Negative) 12/17/23 13:21 Urine Urobilinogen 1.0 mg/dL (Negative) 12/17/23 13:21 Ur Leukocyte Esterase Negative (Negative) 12/17/23 13:21 Urine RBC 0-2 /hpf (0-2) 12/17/23 13:21 Urine WBC 0-5 /hpf (0-5) 12/17/23 13:21 Ur Squamous Epith Cells 0-5 /hpf (0-5) 12/17/23 13:21 Amorphous Sediment Not Reportable 12/17/23 13:21 Urine Bacteria None seen /hpf (NONE) 12/17/23 13:21 Hyaline Casts 0-4 /lpf H 12/17/23 13:21 All radiology interpretation(s) finalized by discharge Discharge Plan Discharge Patient Disposition: Home Clinical Impression: Right lower quadrant abdominal pain, Ovarian cyst Condition: Stable Prescriptions: New hydrocodone-acetaminophen 5-325 mg tablet 1 tab PO Q6H PRN (Reason: pain) Qty: 14 0RF naproxen 500 mg tablet 250 mg PO Q8H PRN (Reason: pain) Qty: 20 0RF ondansetron 4 mg tablet,disintegrating 4 mg PO Q6H PRN (Reason: nausea and vomiting) Qty: 14 0RF No Action Imitrex 25 mg Tablet See Rx Instructions .ROUTE .COMPLEX PRN (Reason: Migraine Headache) Rx Instructions: 25 mg orally at onset of headache. May repeat in 2 hours. ;do not exceed 8 doses per 24 hrs dicyclomine 20 mg Tablet 20 mg PO QID Zofran ODT 4 mg Tablet,Disintegrating 4 mg PO Q6H PRN (Reason: Nausea And Vomiting) Ativan 2 mg tablet 2 mg PO TID PRN (Reason: anxiety) Qty: 10 0RF Discharge Orders: Discharge ED (Routine); Ordered 12/17/23 Ordered By: Maldonado Acuna Referrals: Myra Lucas FNP [Primary Care Provider] - 4-7 days Patient Instructions: Abdominal Pain (ED), Opioid Safety, Pain Management Activity Restrictions/Additional Instructions: We suspect that the cause of your pain is due to a ruptured ovarian cyst that bled into the pelvis and caused irritation. There is a small possibility that you could have an inflammation of your colon or appendix. If you have increasing pain, loss of appetite, fever or chills, sweats, or your condition is otherwise worsening, then you need to return to the emergency department. Hemorrhagic cyst cause irritation of the peritoneum or lining of the abdomen and pelvis. They usually cause a constant pain and can get pretty intense. However, the pain should be getting better over time not worse. Coding Level of Care Code ED [employer] Lieutenant for Parul Swann
[2023-12-17] MEDS: HYDROcodone-acetaminophen 5-325 mg Tablet 1 TAB PO (15:30)
[2023-12-17] MEDS: ketorolac 30 mg/mL INJ IM (15:30)
[2023-12-17] MEDS: ondansetron 4 MG Tablet PO (15:31)
[2023-12-17 18:23] VITALS: BP 101/63; PULSE 63; RESP 16; O2SAT 100
[2023-12-17 18:25] VITALS: BP 101/63; PULSE 63; O2SAT 100
== END 2023-12-17 18:30 | disposition home or self-care (01) ==
PROVIDERS: Physician Assistant; Emergency Provider Emergency Medicine; PCP Nurse Practitioner Family
DX: R10.31 Right lower quadrant pain (principal); N83.201 Unspecified ovarian cyst, right side
CPT/HCPCS: 36415; 76830; 80053; 81001; 81025; 83690; 85025; 96372; 99284; J1885; Q0162

== ENCOUNTER 2024-09-07 17:16 | Emergency (ER) | payer SELFPAY ==
[2024-09-07] VITALS (7 sets, daily range): BP systolic 103–122; BP diastolic 60–79; PULSE 72–92; RESP 14–16; TEMP 36.7; O2SAT 98–100; BMI 22.6
--- NOTE | 2024-09-07 18:12 | ED_ITS ---
HPI - Nausea/Vomiting/Diarrhea 2 General: Chief complaint: Nausea/Vomiting/Diarrhea Stated complaint: n,v,headache Time Seen by Provider: 09/07/24 17:57 History of Present Illness: This patient is a 34 year old presenting with nausea, vomiting. She says that she has been tired for the past few days and yesterday had vomiting. Today she is nauseous and hasn't eaten much but hasn't thrown up. She denies diarrhea and has had normal BMs. She notes increased frequency but no dysuria. Her LMP was July 16. She normally has regular cycles. She took a home test and it was negative. She thinks she might have had a low grade fever. No cough, sore throat, runny nose. She tells me that she has a history of food allergies and this is a little bit like when she reacts to something but she isn't sure. No history of any surgeries. Related Data Home Medications ?Medication ?Instructions ?Recorded ?Confirmed dicyclomine 20 mg tablet 20 mg PO QID 11/13/22 sumatriptan succinate 25 mg tablet See Rx Instructions .Route 11/13/22 09/29/23 (Imitrex) .COMPLEX PRN Migraine Headac he Previous Rx's ?Medication ?Instructions ?Recorded lorazepam 2 mg tablet (Ativan) 2 mg PO TID PRN anxiety #10 tabs 11/13/22 hydrocodone 5 mg-acetaminophen 325 1 tab PO Q6H PRN pa in #14 tabs 12/17/23 mg tablet naproxen 250 mg tablet 250 mg PO Q8H PRN pain #20 t abs 12/17/23 ondansetron 4 mg disintegrating 4 mg PO Q6H PRN nausea and 12/17/23 tablet vomiting #14 tabs metoclopramide HCl 10 mg tablet 10 mg PO Q6H PRN nause a and 09/07/24 (Reglan) vomiting #7 tabs Allergies Allergy/AdvReac Type Severity Reaction Status Date / Time doxycycline AdvReac ADR-Vomitin Verified 09/07/24 17:40 g PFSH ED 2 PFSH: Medical History History of supraventricular tachycardia Diagnosed in 2003 in her first . She states she underwent an cardiac ablative procedure in 2004 in [facility] and since then she has had no problems with tachycardia. Seizure disorder headache induced Chronic migraine without aura, with intractable migraine, so stated, with status migrainosus Surgical History H/O LEEP (~2009) [place]- 2 on pathology Wrist fracture left at age 6; right at age 8 History of radiofrequency ablation (RFA) procedure for cardiac arrhythmia (~2004) To treat SVT Family History Father Hypertension Diabetes Grandmother Hypertension Paternal Diabetes Paternal Left cleft palate paternal Breast cancer paternal Mother Heart disease Family/Other Left cleft palate cousins Patient denies medical problems Denies family history of: Cervical, uterine, ovarian, colon cancer, DVT/PE Social History Smoking and tobacco/nicotine status: unknown if used tobacco/nicotine Alcohol intake: former Substance/Drug Use: former Date of last use: 2014 Current gender identity: Female Female Reproductive History: Date of last menstrual period: 07/16/24 Physical Exam 2 Const: COMMON NORMALS: no acute distress, patient oriented x3, no limitations and alert GENERAL APPEARANCE: cooperative and comfortable HENMT: HEAD & SCALP: normal to inspection FACE & SINUS: normal facial exam Eye: GENERAL EYE: appearance normal, both eyes and all related structures Neck/C-Spine: COMMON NORMALS: supple, no meningeal signs and no JVD Chest: COMMONS NORMALS: normal inspection of the chest Resp: COMMON NORMALS: normal respiratory effort, No use of accessory muscles and clear to auscultation bilaterally AUSCULTATION: clear to auscultation bilaterally Cardio: COMMON NORMALS: no JVD, regular rate, regular rhythm and No murmurs present (Cardio) RATE: regular rate RHYTHM: regular rhythm GI: COMMON NORMALS: Normal to inspection, nondistended, normoactive bowel sounds present, Soft to palpation and non-tender INSPECTION: Yes normal to inspection AUSCULTATION: Yes normoactive bowel sounds PALPATION: Yes Soft to palpation OTHER: complains of tenderness in all four quadrants - distractable Back/Pelvis: COMMON NORMALS: thoracic and lumbar spine normal to inspection Extremity: COMMON NORMALS: normal to inspection Neuro: COMMON NORMALS: patient oriented x3, moves all extremities, no focal motor deficits and no sensory deficits noted SENSORIUM/ORIENTATION: Yes alert MENINGEAL SIGNS: Yes no meningeal signs Psych: COMMON NORMALS: mental status grossly normal, cooperative and normal affect Skin: COMMON NORMALS: no rashes or lesions noted and turgor normal GENERAL SKIN EXAM: no rashes or lesions noted and turgor normal Course 2 Vital Signs: Vital signs: Vital Signs Temperature 98.0 F 09/07/24 17:37 Pulse Rate 83 09/07/24 22:54 Respiratory Rate 16 09/07/24 22:54 Blood Pressure 122/60 09/07/24 22:54 Pulse Oximetry 100 09/07/24 22:54 Oxygen Delivery Me thod Room Air 09/07/24 22:00 MDM - Nausea/Vomiting/Diarrhea Medical Decision Making Some vague GI symptoms and fatigue - patient concerned that she might be and is late on her menstrual period. She also reports history of food allergies - it is possible that this could be related to that. Work up was unremarkable - however on repeat abdominal exam she is now localizing pain to the LUQ. She is still uncomfortable and a CT is ordered. CT shows some thickening in the small bowel as in enteritis. There is also some suggestion of hypomotility in the small bowel. Patient is tolerating PO and pain is controlled. Will let her go with reglan for nausea and encourage good fluid intake. Outpatient follow up and return precautions. Lab Data 09/07/24 18:26 09/07/24 18:26 Radiology Impressions Abdomen/Pelvis CT 09/07/24 20:36 IMPRESSION: 1. Findings suggestive of enteritis involving distal small bowel loops in the lower abdomen/pelvis. 2. Punctate nonobstructing left renal calculi. Laboratory Results WBC 8.34 10^3/uL (3.29-11.43) 09/07/24 18: RBC 4.46 10^6/uL (3.85-5.65) 09/07/24 18:26 Hgb 13.50 g/dL (11.27-16.99) 09/07/24 18:26 Hct 39.9 % (36-47) 09/07/24 18: MCV 89.5 fl (85-98) 09/07/24 18:26 MCH 30.3 pg (27-33) 09/07/24 18: MCHC 33.8 g/dL (30-55) 09/07/24 18: RDW 12.3 % (12.1-15.1) 09/07/24 18: Plt Count 198 10^3/cmm (157-399) 09/07/24 18:26 MPV 10.1 fL (7.4-10.4) 09/07/24 18:26 Neut % (Auto) 69.9 % 09/07/24 18:26 Lymph % (Auto) 21.9 % 09/07/24 18:26 Kay % (Auto) 6.5 % 09/07/24 18:26 Eos % (Auto) 0.7 % 09/07/24 18:26 Baso % (Auto) 0.6 % 09/07/24 18: Neut # (Auto) 5.83 10^3/uL (1.8-7.7) 09/07/24 18:26 Lymph # (Auto) 1.8 10^3/uL (0.8-4.8) 09/07/24 18:26 Kay # (Auto) 0.5 10^3/uL (0.2-0.9) 09/07/24 18:26 Eos # (Auto) 0.1 10^3/uL (0.0-0.8) 09/07/24 18:26 Baso # (Auto) 0.1 10^3/uL (0.0-0.1) 09/07/24 18: Nucleated RBC % (auto) 0 % 09/07/24 18: Nucleated RBCs # 0.0 /100WBC 09/07/24 18:26 Sodium 143 mmol/L (136-145) 09/07/24 18:26 Potassium 4.1 mmol/L (3.5-5.1) 09/07/24 18: Chloride 105 mmol/L (98-107) 09/07/24 18: Carbon Dioxide 26 mmol/L (22-29) 09/07/24 18: Anion Gap 16.1 (5-19) 09/07/24 18: BUN 14 mg/dL (6-20) 09/07/24 18: Creatinine 0.6 mg/dL (0.5-0.9) 09/07/24 18:26 GFR Calculation 113.8 mL/min (90-130) 09/07/24 18:26 Glucose 83 mg/dL (65-115) 09/07/24 18: Calculated Osmolality 296 mOsm/kg (285-295) H 09/07/24 18:26 Calcium 9.4 mg/dL (8.5-10.5) 09/07/24 18: Total Bilirubin 0.3 mg/dL (0.15-1.2) 09/07/24 18:26 AST 12 U/L (0-32) 09/07/24 18: ALT 13 U/L (0-33) 09/07/24 18: Alkaline Phosphatase 73 U/L (35-105) 09/07/24 18: Total Protein 7.4 g/dL (6.6-8.7) 09/07/24 18: Albumin 4.4 g/dL (3.5-5.2) 09/07/24 18: Globulin 3.0 g/dL (1.3-4.6) 09/07/24 18:26 Ser , Semi-Qnt < 1.00 mIU/mL 09/07/24 18:26 Urine Color Yellow (Yellow) 09/07/24 17:50 Urine Appearance Clear (CLEAR) 09/07/24 17:50 Urine pH 6.5 (5-7) 09/07/24 17:50 Ur Specific [place] 1.023 (1.005-1.030) 09/07/24 17:50 Urine Protein Negative (Negative) 09/07/24 17:50 Urine Glucose (UA) Negative (Normal) 09/07/24 17:50 Urine Ketones Negative (Negative) 09/07/24 17:50 Urine Blood Negative (Negative) 09/07/24 17:50 Urine Nitrate Negative (Negative) 09/07/24 17:50 Urine Bilirubin Negative (Negative) 09/07/24 17:50 Urine Urobilinogen 0.2 mg/dL (Negative) 09/07/24 17:50 Ur Leukocyte Esterase Negative (Negative) 09/07/24 17:50 Urine RBC 0-2 /hpf (0-2) 09/07/24 17:50 Urine WBC 0-5 /hpf (0-5) 09/07/24 17:50 Ur Squamous Epith Cells 0-5 /hpf (0-5) 09/07/24 17:50 Amorphous Sediment Not Reportable 09/07/24 17:50 Urine Bacteria None seen /hpf (NONE) 09/07/24 17:50 Hyaline Casts 0.40 /lpf 09/07/24 17:50 All radiology interpretation(s) finalized by discharge Discharge Plan Discharge Patient Disposition: Home Clinical Impression: Abdominal pain, Enteritis Condition: Stable Prescriptions: New metoclopramide HCl [Reglan] 10 mg tablet 10 mg PO Q6H PRN (Reason: nausea and vomiting) Qty: 7 0RF No Action hydrocodone-acetaminophen 5-325 mg tablet 1 tab PO Q6H PRN (Reason: pain) Qty: 14 0RF ondansetron 4 mg tablet,disintegrating 4 mg PO Q6H PRN (Reason: nausea and vomiting) Qty: 14 0RF naproxen 250 mg tablet 250 mg PO Q8H PRN (Reason: pain) Qty: 20 0RF Imitrex 25 mg Tablet See Rx Instructions .ROUTE .COMPLEX PRN (Reason: Migraine Headache) Rx Instructions: 25 mg orally at onset of headache. May repeat in 2 hours. ;do not exceed 8 doses per 24 hrs dicyclomine 20 mg Tablet 20 mg PO QID Ativan 2 mg tablet 2 mg PO TID PRN (Reason: anxiety) Qty: 10 0RF Discharge Orders: Discharge ED (Routine); Ordered 09/07/24 Ordered By: Ronda Ledezma Referrals: Lucas,Myra, JACQUARD LOOM WEAVER [Primary Care Provider, Nurse Practitioner] Patient Instructions: Abdominal Pain (ED), Opioid Safety, Pain Management, Patient Portal & Liza Instructions Print Language: Brazilian Coding Level of Care Code ED Pitch Filler for Parul Swann
[2024-09-07] MEDS: ondansetron 2 mg/ML SDV 2 mL 4 MG IVP (18:24)
[2024-09-07 18:33] LABS: Hematocrit 39.9 % (36-47); Hemoglobin 13.50 g/dL (11.27-16.99); Mean Corpuscular HGB Conc 33.8 g/dL (30-55); Mean Corpuscular Hemoglobin 30.3 pg (27-33); Mean Corpuscular Volume 89.5 fl (85-98); Nucleated Red Blood Cells % 0 %; Platelet Count 198 10^3/cmm (157-399); Red Blood Count 4.46 10^6/uL (3.85-5.65); White Blood Count 8.34 10^3/uL (3.29-11.43)
[2024-09-07 18:39] LABS: Glucose Urine UA Negative (Normal); Nitrate Urine Negative (Negative); Specific Gravity, Urine 1.023 (1.005-1.030)
[2024-09-07 18:44] LABS: Add Urine Microscopic? YES
[2024-09-07 18:52] LABS: Alanine Aminotransferase 13 U/L (0-33); Albumin Level 4.4 g/dL (3.5-5.2); Alkaline Phosphatase 73 U/L (35-105); Anion Gap 16.1 (5-19); Aspartate Amino Transferase 12 U/L (0-32); Blood Urea Nitrogen 14 mg/dL (6-20); Calcium 9.4 mg/dL (8.5-10.5); Carbon Dioxide 26 mmol/L (22-29); Chloride 105 mmol/L (98-107); Creatinine Clr Calc Pharmacy 108.5834; Globulin 3.0 g/dL (1.3-4.6); Glucose 83 mg/dL (65-115); Osmolality Calculated 296 mOsm/kg (285-295); Potassium 4.1 mmol/L (3.5-5.1); Sodium 143 mmol/L (136-145); Total Protein 7.4 g/dL (6.6-8.7)
--- NOTE | 2024-09-07 20:36 | CTR_ITS ---
PROCEDURE INFORMATION: Exam: CT Abdomen And Pelvis With Contrast Exam date and time: 09/07/2024 9:19 PM Age: 34 years old Clinical indication: Abdominal pain; Generalized; Additional info: Abdominal pain, fever TECHNIQUE: Imaging protocol: Computed tomography of the abdomen and pelvis with contrast. Radiation optimization: All CT scans at this facility use at least one of these dose optimization techniques: automated exposure control; mA and/or kV adjustment per patient size (includes targeted exams where dose is matched to clinical indication); or iterative reconstruction. Contrast material: OMNI 350; Contrast volume: 100 ml; Contrast route: INTRAVENOUS (IV); COMPARISON: US transvaginal [id number] 12/17/2023 4:01 PM RADIATION DOSE METRICS: Total DLP (mGy-cm): 344.36 FINDINGS: Liver: Normal. No mass. Gallbladder and biliary ducts: Normal. No calcified stones. No ductal dilation. Pancreas: Normal. No ductal dilation. Spleen: Normal. No splenomegaly. Adrenal glands: Normal. No mass. Kidneys and ureters: 1-2 mm nonobstructing left renal calculi. No hydronephrosis bilaterally. Stomach and bowel: Mild mucosal thickening with possible mural enhancement is seen within distal small bowel loops in the lower abdomen/pelvis. Fecalization of contents is also seen within small bowel loops which can be seen with enteritis and/or hypomotility. Appendix: No evidence of appendicitis. Intraperitoneal space: Trace free pelvic fluid is likely physiologic. Vasculature: Unremarkable. No abdominal aortic aneurysm. Lymph nodes: Unremarkable. No enlarged lymph nodes. Urinary bladder: Unremarkable as visualized. Reproductive: Unremarkable as visualized. Bones/joints: Unremarkable. No acute fracture. Soft tissues: Unremarkable. CT/CT abdomen pelvis w con* [id number] IMPRESSION: 1. Findings suggestive of enteritis involving distal small bowel loops in the lower abdomen/pelvis. 2. Punctate nonobstructing left renal calculi.
[2024-09-07] MEDS: iohexol 350 mg/mL 500 mL Btl (per mL) IV (21:19)
--- NOTE | 2024-09-07 21:24 | PC.NURSE ---
patient given water and crackers for PO challenge. States she had slight nausea when she walked to the bathroom but no vomiting. She has CT scan ordered now. Informed patient.
== END 2024-09-07 22:56 | disposition home or self-care (01) ==
PROVIDERS: Emergency Provider Emergency Medicine; PCP Nurse Practitioner Family
DX: R10.9 Unspecified abdominal pain (principal); K52.9 Noninfective gastroenteritis and colitis, unspecified
CPT/HCPCS: 36415; 74177; 80053; 81001; 84702; 85025; 96374; 99285; J2405; J7030

== ENCOUNTER 2024-10-06 20:53 | Emergency (ER) | payer SELFPAY ==
[2024-10-06 20:58] VITALS: BP 120/73; PULSE 85; RESP 16; TEMP 36.9; O2SAT 100; BMI 21.9
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
[2024-10-06] MEDS: iohexol 350 mg/mL 500 mL Btl (per mL) IV (21:43)
[2024-10-06 22:09] LABS: Hematocrit 34.1 % (36-47); Hemoglobin 11.60 g/dL (11.27-16.99); Mean Corpuscular HGB Conc 34.0 g/dL (30-55); Mean Corpuscular Hemoglobin 31.4 pg (27-33); Mean Corpuscular Volume 92.2 fl (85-98); Nucleated Red Blood Cells % 0 %; Platelet Count 162 10^3/cmm (157-399); Red Blood Count 3.70 10^6/uL (3.85-5.65); White Blood Count 7.36 10^3/uL (3.29-11.43)
[2024-10-06 22:21] LABS: HCG, Serum Qual Negative (Negative)
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
[2024-10-06 22:44] LABS: Alanine Aminotransferase 20 U/L (0-33); Albumin Level 4.1 g/dL (3.5-5.2); Alkaline Phosphatase 66 U/L (35-105); Anion Gap 12.5 (5-19); Aspartate Amino Transferase 21 U/L (0-32); Blood Urea Nitrogen 13 mg/dL (6-20); Calcium 8.3 mg/dL (8.5-10.5); Carbon Dioxide 24 mmol/L (22-29); Chloride 103 mmol/L (98-107); Creatinine Clr Calc Pharmacy 91.7865; Globulin 2.2 g/dL (1.3-4.6); Glucose 98 mg/dL (65-115); Osmolality Calculated 282 mOsm/kg (285-295); Potassium 3.5 mmol/L (3.5-5.1); Sodium 136 mmol/L (136-145); Total Protein 6.3 g/dL (6.6-8.7)
[2024-10-06 23:26] VITALS: BP 106/67; PULSE 64; RESP 15; O2SAT 97
== END 2024-10-06 23:09 | disposition home or self-care (01) ==
PROVIDERS: Emergency Provider Student in an Organized Health Care Education/Training Program; PCP Nurse Practitioner Family
DX: S09.8XXA Other specified injuries of head, initial encounter (principal); S00.83XA Contusion of other part of head, initial encounter; S53.401A Unspecified sprain of right elbow, initial encounter; S00.33XA Contusion of nose, initial encounter; S00.03XA Contusion of scalp, initial encounter; S10.93XA Contusion of unspecified part of neck, initial encounter; Y04.2XXA Assault by strike against or bumped into by another person, initial encounter
CPT/HCPCS: 36415; 70450; 70498; 71101; 73080; 80053; 84703; 85025; 99285